=== PATIENT | female | born 1995 | race Caucasian/White ===

== ENCOUNTER 2017-04-22 15:22 | Emergency (ER) | payer OTHER ==
--- NOTE | 2017-04-22 16:54 | ED Physician Documentation ---
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 She has a scant amount of bleeding and she has only a scant amount of cramping as well. She does acknowledge breast tenderness and nausea. She has had a prior miscarriage and is nervous about this bleeding. She is also not wanting to have and endovaginal probe used today. Review of Systems Constitutional: denies: Fever, Chills, Fatigue Eyes: denies: Decreased vision Ears: denies: Ear pain Nose: denies: Congestion Throat: denies: Sore throat Respiratory: denies: Cough GI: reports: Nausea : reports: Frequency, Vaginal bleeding, Now EGA (6wks). denies: Dysuria Skin: denies: Rash Musculoskeletal: denies: Neck pain, Back pain, Extremity pain PD PAST MEDICAL HISTORY - Past Surgical History Past Surgical History: No - Present Medications Home Medications: Ambulatory Orders Medication Instructions Recorded Confirmed No Known Home Medications [No 04/22/17 04/22/17 Known Home Medications] - Allergies Allergies/Adverse Reactions: Allergies Allergy/AdvReac Type Severity Reaction Status Date / Time No Known Drug Allergies Allergy Verified 12/06/15 16:45 - Social History Does the pt smoke?: No Smoking Status: Never smoker - Immunizations Immunizations are current?: Yes PD ED PE NORMAL - Vitals Vital signs reviewed: Yes - General General: No acute distress, Well developed/nourished - HEENT HEENT: Atraumatic, PERRL - Neck Neck: Supple, no meningeal sign - Cardiac Cardiac: RRR, No murmur - Respiratory Respiratory: No respiratory distress, Clear bilaterally - Abdomen Abdomen: Soft, Non tender - Back Back: No CVA TTP, No spinal TTP - Derm Derm: Normal color, Warm and dry, No rash - Extremities Extremities: No deformity, No edema - Neuro Neuro: No motor deficit, No sensory deficit - Psych Psych: Normal mood, Normal affect Results - Vitals Vitals: Vital Signs - 24 hr 04/22/17 04/22/17 15:27 18:49 Temperature 36.4 C L 36.6 C Heart Rate 103 H 92 Respiratory 14 16 Rate Blood Pressure 146/86 H 138/80 H O2 Saturation 100 100 Oxygen O2 Source Room air - Labs Labs: Laboratory Tests 04/22/17 04/22/17 17:40 17:47 HCG, Quant 38.33 Urine Color YELLOW Urine Clarity CLEAR Urine pH 5.5 Ur Specific Kerrick >=1.030 H Urine Protein NEGATIVE Urine Glucose (UA) NEGATIVE Urine Ketones NEGATIVE Urine Occult Blood TRACE-INTA Urine Nitrite NEGATIVE Urine Bilirubin NEGATIVE Urine Urobilinogen 0.2 (NORMAL) Ur Leukocyte Esterase NEGATIVE Ur Microscopic Review NOT INDICATED Urine Culture Comments NOT INDICATED Procedures - Bedside sono Bedside sono by EMP: With the use of the bedside ultrasound the uterus is imaged transabdominally and there is a gestational sac with a gestational age of approximately 5 weeks 3 days I am not able to discern the fetus and the yolk sac. PD MEDICAL DECISION MAKING - ED course Complexity details: reviewed results, re-evaluated patient, considered differential, d/w patient, d/w family ED course: 21-year-old female with some spotting early in has a very low hCG but consistent with the findings on bedside ultrasound which shows a 5 week 3 day gestational sac. There is not definite confirmation of intrauterine as we are not able to distinguish fetus and yolk sac.I have discussed these findings with the patient and her required need to follow-up with her SEXUAL HEALTH PHYSICIAN doctor in 3 days time for repeat hCG. I have asked her to return to the emergency department should she have development of severe pain or syncope. Departure - Departure Disposition: 01 Home, Self Care Clinical Impression: Early stage of , Hemorrhage, , early Condition: Stable Instructions: ED Abdominal Pain Rule Out Ectopic, ED Miscarriage Poss Follow-Up: [place] DISLA [Primary Care Provider] - Comments: Follow up on Tuesday with your regular doctor for a repeat quantitative hCG Discharge Date/Time: 04/22/17 18:49
[2017-04-22 18:19] LABS: BILIRUBIN,URINE NEGATIVE (NEGATIVE); PH,URINE 5.5 PH (5.0-7.5)
[2017-04-22 18:25] LABS: UA CHARGE (STRIP ONLY) YES; UR CULTURE IF IND NOT INDICATED
[2017-04-22 18:50] VITALS: BP 138/80
== END 2017-04-22 18:49 | disposition home or self-care (01) ==
LOC: ED 15:22
DX: O20.9 Hemorrhage in early pregnancy, unspecified (principal); Z3A.01 Less than 8 weeks gestation of pregnancy
CPT/HCPCS: 81001; 81003; 84702; 87086; 99283

== ENCOUNTER 2017-04-25 09:28 | Emergency (ER) | payer OTHER ==
[2017-04-25 12:39] VITALS: BP 138/87
[2017-04-25] MEDS ORDERED: RHO(D) IMMUNE GLOBULIN 300 MCG SYRINGE IM ONE (12:54)
--- NOTE | 2017-04-25 13:37 | ED Physician Documentation ---
History of Present Illness - Stated complaint Stated Complaint: POSSIBLE MISCARRAIGE - Chief complaint Chief Complaint: Abd Pain - Additonal information Additional information: hx from pt approx 6 weeks EGA [place] pt but no appt yet seen Tuesday for spotting, quant 30, pt declined TV sono, bedside sono showed intrauterine gestational sac, advised to fup EDUARDO for 48-72 hr quant and recheck Sat she had heavy bleeding and cramping now pain is better but still bleeding about 1 pad per hr she come to ER to see if she has completed her miscarriage she is still adamant she does not want TV sono Review of Systems Constitutional: denies: Fever GI: denies: Abdominal Pain (better now) : reports: Vaginal bleeding, Now EGA PD PAST MEDICAL HISTORY - Past Surgical History Past Surgical History: No - Present Medications Home Medications: Ambulatory Orders Medication Instructions Recorded Confirmed No Known Home Medications [No 04/22/17 04/22/17 Known Home Medications] - Allergies Allergies/Adverse Reactions: Allergies Allergy/AdvReac Type Severity Reaction Status Date / Time No Known Drug Allergies Allergy Verified 12/06/15 16:45 - Social History Does the pt smoke?: No Smoking Status: Never smoker Does the pt drink ETOH?: No Does the pt have substance abuse?: No - Immunizations Immunizations are current?: Yes PD ED PE NORMAL - Vitals Vital signs reviewed: Yes - Cardiac Cardiac: RRR - Respiratory Respiratory: No respiratory distress, Clear bilaterally - Abdomen Abdomen: Soft, Non tender - 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), Other (mod dark blood, no tissue, os now closed) Results - Vitals Vitals: Vital Signs - 24 hr 04/25/17 04/25/17 09:36 12:38 Temperature 36.7 C Heart Rate 76 84 Respiratory 16 17 Rate Blood Pressure 134/82 H 138/87 H O2 Saturation 99 98 Oxygen O2 Source Room air - Labs Labs: Laboratory Tests 04/25/17 10:35 HCG, Quant 10.67 PD MEDICAL DECISION MAKING - ED course ED course: quant down to 10 and cervix closed pt declines TV sono feel ectopic very unlikely given that pain has subsided and quant has dropped significantly 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 I think an ectopic is unlikely since your symptoms are subsiding. A transvaginal ultrasound would normally be recommended in this situation but you are very clear that you do not want that test (and there is a good chance that it would be non diagnostic at 6 weeks gestation in any case) Please follow up with our STATE WILDLIFE OFFICER clinic Wed to for a recheck and to repeat the quantative HCG Return to the ER if you have any severe pain or feel faint or have increasing bleeding - these could be signs of an ectopic Also please get your blood pressure rechecked - it was high today Forms: Activity restrictions
== END 2017-04-25 13:50 | disposition home or self-care (01) ==
LOC: ED 09:28
DX: O03.4 Incomplete spontaneous abortion without complication (principal)
CPT/HCPCS: 36415; 84702; 86900; 86901; 96372; 99283

== ENCOUNTER 2018-06-21 23:01 | Emergency (ER) | payer OTHER ==
--- NOTE | 2018-06-21 23:29 | ED Physician Documentation ---
PD HPI LOWER EXT INJURY - Stated complaint Stated Complaint: L LEG INJURY - Chief complaint Chief Complaint: Trauma Ext - History obtained from History obtained from: Patient - History of Present Illness PD HPI LOW EXT INJURY LOCATION: Left, Knee, Ankle Type of injury: Fall Where injury occurred: Home Timing - onset: Today Timing - details: Abrupt onset, Still present Improved by: Rest, Immobilization Worsened by: Moving, Palpating Similar symptoms before: Has not had sx before Recently seen: Not recently seen - Additional information Additional information: Patient is a 23 year old female with no significant past medical history who is presenting to the emergency department for knee and ankle pain. patient states that she slipped on her steps and she twisted her ankle and hit her knee. patient denies any other injuries at this time. Review of Systems Ten Systems: 10 systems reviewed and negative Musculoskeletal: reports: Extremity pain, Joint pain, Extremity swelling, Joint swelling PD PAST MEDICAL HISTORY - Past Medical History Past Medical History: No - Past Surgical History Past Surgical History: No - Present Medications Home Medications: Ambulatory Orders Medication Instructions Recorded Confirmed No Known Home Medications 04/22/17 06/21/18 - Allergies Allergies/Adverse Reactions: Allergies Allergy/AdvReac Type Severity Reaction Status Date / Time oxycodone Allergy Dizziness Verified 06/21/18 23:16 - Social History Does the pt smoke?: No Smoking Status: Never smoker Does the pt drink ETOH?: No Does the pt have substance abuse?: No - Immunizations Immunizations are current?: Yes - POLST Patient has POLST: No PD ED PE NORMAL - Vitals Vital signs reviewed: Yes - General General: Alert and oriented X 3, No acute distress - HEENT HEENT: Atraumatic - Cardiac Cardiac: RRR - Respiratory Respiratory: No respiratory distress - Abdomen Abdomen: Non distended - Derm Derm: Normal color, Warm and dry - Neuro Neuro: Alert and oriented X 3 Eye Opening: Spontaneous Motor: Obeys Commands Verbal: Oriented GCS Score: 15 PD ED PE EXPANDED - Extremities Extremities: Left knee (mild tenderness to palpation, neurovascularly intacte), Left ankle (mild tenderness and swelling to lateral maleolus), Pedal Pulses Present, Motor intact, Sensory intact, Vascular intact, Tendon intact Results - Vitals Vitals: Vital Signs - 24 hr 06/21/18 23:04 Temperature 36.1 C L Heart Rate 82 Respiratory 16 Rate Blood Pressure 123/64 O2 Saturation 100 Oxygen O2 Source Room air - Rads (name of study) left knee Radiology: Final report received (no fracture or dislocation) left ankle Radiology: Final report received (no acute fracture or dislocation) PD MEDICAL DECISION MAKING - ED course Complexity details: reviewed old records, reviewed results, re-evaluated patient, considered differential, d/w patient ED course: Patient was seen and examined at bedside. When patient returned from imaging the results were reviewed. there was no acute fracture or dislocation. Patient was treated with ibuprofen for pain and placed in an purnima bandage. patient required no further work up and was stable for discharge with outpatient follow up. - Sepsis Event Vital Signs: Vital Signs - 24 hr 06/21/18 23:04 Temperature 36.1 C L Heart Rate 82 Respiratory 16 Rate Blood Pressure 123/64 O2 Saturation 100 Oxygen O2 Source Room air Departure - Departure Disposition: 01 Home, Self Care Clinical Impression: Ankle pain, left, Knee pain, left Condition: Good Instructions: ED Sprain Ankle W X Ray Follow-Up: Ezequiel Pereira MD [Primary Care Provider] - As Needed Comments: Your diagnostics today were within normal limits. there is no acute fracture or dislocation. You should ice your knee and ankle every 6 hrs and take motrin and tylenol as needed for pain. You should follow up with your doctor if your symptoms persist. You may return to the emergency department at any time for new, worsening or uncontrollable symptoms.
--- NOTE | 2018-06-21 23:57 | XRAY Report ---
Reason: GLF injury to knee ankle Procedure Date: 06/21/2018 Accession Number: [id number] / [id number] Procedure: XR - Knee 3 View LT CPT Code: FULL RESULT: EXAM: LEFT KNEE RADIOGRAPHY EXAM DATE: 06/21/2018 11:49 PM. CLINICAL HISTORY: Knee pain after injury. COMPARISON: None. TECHNIQUE: 3 views. FINDINGS: Bones: No fracture seen. Joints: No dislocation. Joint spaces appear intact. No joint effusion identified. Soft Tissues: Mild soft tissue swelling. IMPRESSION: 1. No acute osseous abnormality seen. RADIA
--- NOTE | 2018-06-22 00:01 | XRAY Report ---
Reason: GLF injury Procedure Date: 06/21/2018 Accession Number: [id number] / [id number] Procedure: XR - Ankle 3 View LT CPT Code: FULL RESULT: EXAM: LEFT ANKLE RADIOGRAPHY EXAM DATE: 06/21/2018 11:51 PM. CLINICAL HISTORY: Left ankle pain after injury. COMPARISON: None. TECHNIQUE: 3 views. FINDINGS: Bones: No fracture seen. Joints: No dislocation. Ankle mortise appears intact. No joint effusion identified. Soft Tissues: Mild soft tissue swelling. IMPRESSION: 1. No acute osseous abnormality seen. RADIA
[2018-06-22] MEDS ORDERED: IBUPROFEN 600 MG TABLET PO STA (00:12)
[2018-06-22 00:24] VITALS: BP 126/72
== END 2018-06-22 00:24 | disposition home or self-care (01) ==
LOC: ED 23:01
DX: M25.572 Pain in left ankle and joints of left foot (principal); M25.562 Pain in left knee; Z91.81 History of falling
CPT/HCPCS: 73562; 73610; 99283; A9270

== ENCOUNTER 2021-03-07 19:40 | Outpatient (CLI) | payer OTHER ==
[2021-03-07 20:53] LABS: BASOPHILS # (AUTO) 0.1 10^3/uL (0.0-0.1); BASOPHILS % (AUTO) 0.5 %; EOSINOPHILS # (AUTO) 0.2 10^3/uL (0.0-0.7); HGB - HEMOGLOBIN 15.1 g/dL (12.0-16.0); LYMPHOCYTES # (AUTO) 2.4 10^3/uL (1.5-3.5); LYMPHOCYTES % (AUTO) 20.5 %; MEAN CORPUSCULAR HEMOGLOBIN 29.4 pg (27.0-31.0); MEAN CORPUSCULAR HGB CONC 35.1 g/dL (32.0-36.0); MEAN CORPUSCULAR VOLUME 83.8 fL (81.0-99.0); MEAN PLATELET VOLUME 11.5 fL (7.9-10.8); MONOCYTES # (AUTO) 0.9 10^3/uL (0.0-1.0); MONOCYTES % (AUTO) 7.4 %; NEUTROPHILS # (AUTO) 8.1 10^3/uL (1.5-6.6); NEUTROPHILS % (AUTO) 69.3 %; PLT - PLATELET COUNT 276 10^3/uL (130-450); RED BLOOD COUNT 5.13 10^6/uL (4.20-5.40); RED CELL DISTRIBUTION WIDTH 12.8 % (12.0-15.0); WHITE BLOOD COUNT 11.7 x10^3/uL (4.8-10.8)
--- NOTE | 2021-03-07 21:30 | Ultrasound Report ---
PROCEDURE: OB First Trimester w/TV INDICATIONS: POSITIVE TEST OUTSIDE/PRIOR DATING DATA: Last menstrual period (LMP): 01/09/2021. LMP-based estimated date of delivery (JUNI): 10/16/2021. First dating scan (date and location): 03/07/2021. Estimated date of delivery (JUNI) from first dating scan: 10/28/2021. The below data below was generated using the 10/28/2021 JUNI of 03/07/2021 TECHNIQUE: Real-time scanning was performed of the fetus and maternal pelvic organs, with image documentation. Endovaginal scanning was also performed to better visualize the fetus and maternal ovaries. COMPARISON: None FINDINGS: Embryo: Single living intrauterine gestation identified. Healed sac and pole or identified. Yo lk sac is slightly irregular shape. [place]-rump length measures 0.64 cm corresponding to ultrasound es timated gestational age of 6 weeks 3 days. Small 0.6 x 0.4 x 0.4 cm subchorionic/periimplantational b leed. Measurement variability in dating: +/- 4 weeks by LMP, +/- 7 days by mean sac diameter (use before 6 weeks gestation if crown-rump length not able to be measured), +/- 5 days by crown-rump length (6-12 weeks gestation). Maternal organs: Ovaries are within normal limits. IMPRESSION: Single living intrauterine with ultrasound estimated gestational age of 6 weeks 3 days dai esponding to ultrasound JUNI of 10/28/2021. Reviewed by: Alejandrina Ferreira MD, PhD on 03/07/2021 9:29 PM PDT Approved by: Alejandrina Ferreira MD, PhD on 03/07/2021 9:29 PM PDT Station ID: [id number]
== END 2021-03-07 19:41 | disposition home or self-care (01) ==
LOC: DI 19:40
PROVIDERS: ATTEND Nurse Practitioner Obstetrics & Gynecology
DX: Z32.01 Encounter for pregnancy test, result positive (principal); Z87.59 Personal history of other complications of pregnancy, childbirth and the puerperium; Z36.89 Encounter for other specified antenatal screening
CPT/HCPCS: 36415; 85025; 86592; 86762; 86787; 86803; 86850; 86900; 86901; 87340; 87389

== ENCOUNTER 2021-04-16 08:00 | Outpatient (CLI) | payer OTHER ==
[2021-04-16 16:09] LABS: MUDS CUTOFF CONCENTRATIONS CUTOFF CONC BELOW:
[2021-04-16 16:21] LABS: BILIRUBIN,URINE NEGATIVE (NEGATIVE); GLUCOSE, URINE (UA) NEGATIVE (NEGATIVE); KETONES,URINE (UA) 40 mg/dL (NEGATIVE); LEUKOCYTE ESTERASE, URINE NEGATIVE (NEGATIVE); NITRITE,URINE NEGATIVE (NEGATIVE); OCCULT BLOOD,URINE SMALL (NEGATIVE); PROTEIN,URINE NEGATIVE (NEGATIVE); UROBILINOGEN,URINE 0.2 (NORMAL) E.U./dL (NORMAL)
[2021-04-16 16:22] LABS: CLARITY,URINE CLEAR (CLEAR)
[2021-04-16 16:30] LABS: PROTEIN/CREATININE RATIO,URINE 0.1 (<=0.2)
[2021-04-16 16:34] LABS: BACTERIA,URINE Few /HPF (None Seen); RBC,URINE 0-5 /HPF (0-5); SQUAMOUS EPITHELIAL CELL,UR FEW Squamous (<= Few); WBC,URINE 0-3 /HPF (0-5)
[2021-04-16 17:16] LABS: AMPHETAMINE SCREEN,URINE NEGATIVE (NEGATIVE); BARBITURATE SCREEN,UR NEGATIVE (NEGATIVE); BENZODIAZEPINES SCREEN, URINE NEGATIVE (NEGATIVE); COCAINE SCREEN URINE NEGATIVE (NEGATIVE); METHADONE SCREEN, URINE NEGATIVE (NEGATIVE); METHAMPHETAMINES SCREEN, URINE NEGATIVE (NEGATIVE); OPIATE SCREEN, URINE NEGATIVE (NEGATIVE); OXYCODONE SCREEN, URINE NEGATIVE (NEGATIVE); PROPOXYPHENE SCREEN, URINE NEGATIVE (NEGATIVE); THC CANNABINOID SCREEN, URINE NEGATIVE (NEGATIVE); TRICYCLIC ANTIDEPRESSANT,URINE NEGATIVE (NEGATIVE)
== END 2021-04-16 23:59 | disposition home or self-care (01) ==
LOC: LAB.WC 08:00
PROVIDERS: ATTEND Obstetrics & Gynecology
DX: O09.90 Supervision of high risk pregnancy, unspecified, unspecified trimester (principal); O16.9 Unspecified maternal hypertension, unspecified trimester
CPT/HCPCS: 80306; 81001; 82570; 84156; 87086

== ENCOUNTER 2021-04-16 13:14 | Outpatient (CLI) | payer OTHER ==
[2021-04-16 14:27] LABS: ALBUMIN 3.8 g/dL (3.2-5.5); ALBUMIN/GLOBULIN RATIO 1.3 (1.0-2.2); BILIRUBIN,TOTAL 0.5 mg/dL (0.2-1.0); CREATININE 0.6 mg/dL (0.4-1.0); POTASSIUM 3.3 mmol/L (3.5-5.0); TOTAL PROTEIN 6.7 g/dL (6.7-8.2)
[2021-04-16 20:06] LABS: ESTIMATED AVERAGE GLUCOSE 103 mg/dL (70-100); HEMOGLOBIN A1c% 5.2 % (4.27-6.07)
== END 2021-04-16 13:15 | disposition home or self-care (01) ==
LOC: LAB 13:14
PROVIDERS: ATTEND Obstetrics & Gynecology
DX: O16.9 Unspecified maternal hypertension, unspecified trimester (principal); O09.90 Supervision of high risk pregnancy, unspecified, unspecified trimester; O99.280 Endocrine, nutritional and metabolic diseases complicating pregnancy, unspecified trimester; R73.03 Prediabetes
CPT/HCPCS: 36415; 80053; 80306; 81001; 82570; 83036; 84156; 87086

== ENCOUNTER 2021-05-20 08:00 | Outpatient (CLI) | payer OTHER ==
[2021-05-21 14:06] LABS: AFP MOM 1.01; AGE RISK DOWN SYNDROME 1 IN 860; CIGARETTE SMOKER? NOT GIVEN; DONOR AGE: EGG RETRIEVAL NOT GIVEN; DONOR EGG NO; EDD DETERMINED BY ULTRASOUND; HCG MOM 1.03; HX OF NEURAL TUBE DEFECTS NO; INHIBIN A MOM 0.58; INSULIN DEPEND DIABETIC NO; MATERNAL WEIGHT 170 lbs; MSS DOWN SYNDROME RISK <1 IN 5000; MSS3 TRISOMY 18 RISK <1 IN 5000; NUMBER OF FETUSES 1; PREV PREGNANCY DOWN SYND NO; RISK FOR ONTD <1 IN 5000
== END 2021-05-20 23:59 | disposition home or self-care (01) ==
LOC: LAB.WCP 08:00
PROVIDERS: ATTEND Obstetrics & Gynecology
DX: O09.90 Supervision of high risk pregnancy, unspecified, unspecified trimester (principal)
CPT/HCPCS: 36415; 81511

== ENCOUNTER 2021-06-08 13:39 | Outpatient (CLI) | payer OTHER ==
--- NOTE | 2021-06-08 17:24 | Ultrasound Report ---
PROCEDURE: OB Detailed Eval INDICATIONS: SUPERVISION OF HIGH RISK OUTSIDE/PRIOR DATING DATA: Last menstrual period (LMP): 01/09/2021. LMP-based estimated date of delivery (JUNI): 10/16/2021. First dating scan (date and location): 03/07/2021. Estimated date of delivery (JUNI) from first dating scan: 10/28/2021. TECHNIQUE: Real-time scanning was performed of the fetus, with image documentation and biometric measurements. Endovaginal scanning: No COMPARISON: Prior OB ultrasound dated 02/08 FINDINGS: General: A single living intrauterine gestation is present. Presentation: Vertex Placenta: Placental position is anterior, without previa. Amniotic fluid index: 17.1 cm, normal for gestational age. heart rate: 140 beats per minute. Maternal cervical canal: 3.5 cm long; normal length is 2.5 cm or more. biometrics: Biparietal diameter: 20 weeks 2 days Head circumference: 20 weeks 1 day Abdominal circumference: 20 week 6 day Femur length: 20 weeks 1 day Estimated gestational age from initial scan: 19 weeks 5 days Composite gestational age from present scan: 20 weeks 1 day Estimated weight and percentile: 35 7 g; 86 percentile Measurement variability in biometric dating: +/- 10 days from 12-20 weeks gestation, +/- 2 weeks from 20-30 weeks gestation, +/- 3 weeks at 30 weeks gestation or later. Anatomic survey: Neuro: Ventricles are normal at less than 10 mm. Cisterna magna is normal at 3-11 mm. Cerebellum i s normal in size and morphology. Nuchal skin fold: Normal at less than 6 mm between 14 and 20 weeks gestational age. Face: Nose and lips, facial profile are normal. Spine: Suboptimally visualized. Heart: 4-chambered heart is present, and L4 fracture not well seen.. Diaphragm: Diaphragm is intact. Stomach: Left-sided stomach is present. Kidneys: Mild bilateral pelviectasis with the right renal pelvis measuring 7.2 mm and the left 6.4 mm . Normal is less than 5 mm in 2nd trimester, less than 7 mm in 3rd trimester. Cord: 3 vessel cord has orthotopic insertion. Bladder: Normal in size. Extremities: All 4 extremities are visualized. IMPRESSION: 1. Normal interval growth. 2. spine, and the cardiac catheter tracts are not well visualized and there is mild bilateral f etal renal pyelectasis. Follow-up is recommended. Reviewed by: ODALIS Judd on 06/08/2021 5:22 PM PDT Approved by: Steve Esteban MD on 06/08/2021 5:22 PM PDT Station ID: [id number]
== END 2021-06-08 13:40 | disposition home or self-care (01) ==
LOC: DI 13:39
PROVIDERS: ATTEND Obstetrics & Gynecology
DX: O09.92 Supervision of high risk pregnancy, unspecified, second trimester (principal); O35.8XX2 Maternal care for other (suspected) fetal abnormality and damage, fetus 2; Z3A.20 20 weeks gestation of pregnancy

== ENCOUNTER 2021-06-24 15:14 | Outpatient (CLI) | payer OTHER ==
--- NOTE | 2021-06-24 16:55 | Ultrasound Report ---
PROCEDURE: OB F/U or Repeat INDICATIONS: SUPERVISION HIGH RISK OUTSIDE/PRIOR DATING DATA: Last menstrual period (LMP): 01/09/2021. LMP-based estimated date of delivery (JUNI): 10/16/2021. First dating scan (date and location): 03/07/2021. Estimated date of delivery (JUNI) from first dating scan: 10/28/2021. TECHNIQUE: Real-time scanning was performed of the fetus, with image documentation and biometric measurements. Endovaginal scanning: No COMPARISON: None. FINDINGS: General: A single living intrauterine gestation is present. Presentation: Vertex Placenta: Placental position is anterior, without previa. Amniotic fluid index: 21.4 cm heart rate: 138 beats per minute. Maternal cervical canal: 5.1 cm long; normal length is 2.5 cm or more. Survey of anatomy includes normal face/lips/orbits, spine, four-chamber heart view, outflow tra cts, chest/diaphragm, stomach/abdomen, and urinary bladder/pelvis. Mild pelvocaliectasis persists walt aterally.. IMPRESSION: 1. Single living intrauterine gestation. 2. Persistent mild pelvocaliectasis. 3. Otherwise normal limited survey of anatomy as above. Reviewed by: Juan Ayala MD on 06/24/2021 4:54 PM PDT Approved by: Juan Ayala MD on 06/24/2021 4:54 PM PDT Station ID: [id number]
== END 2021-06-24 15:15 | disposition home or self-care (01) ==
LOC: DI 15:14
PROVIDERS: ATTEND Obstetrics & Gynecology
DX: O09.90 Supervision of high risk pregnancy, unspecified, unspecified trimester (principal)

== ENCOUNTER 2021-07-27 09:35 | Outpatient (CLI) | payer OTHER ==
[2021-07-27 12:44] LABS: HGB - HEMOGLOBIN 10.9 g/dL (12.0-16.0); MEAN CORPUSCULAR HEMOGLOBIN 28.1 pg (27.0-31.0); MEAN CORPUSCULAR HGB CONC 31.1 g/dL (32.0-36.0); MEAN CORPUSCULAR VOLUME 90.2 fL (81.0-99.0); MEAN PLATELET VOLUME 11.9 fL (7.9-10.8); RED BLOOD COUNT 3.88 10^6/uL (4.20-5.40); RED CELL DISTRIBUTION WIDTH 15.6 % (12.0-15.0); WHITE BLOOD COUNT 11.5 x10^3/uL (4.8-10.8)
== END 2021-07-27 23:59 | disposition home or self-care (01) ==
LOC: LAB.WCP 09:35
PROVIDERS: ATTEND Obstetrics & Gynecology
DX: O09.90 Supervision of high risk pregnancy, unspecified, unspecified trimester (principal); Z36.89 Encounter for other specified antenatal screening
CPT/HCPCS: 36415; 82950; 85027; 86850

== ENCOUNTER 2021-08-05 08:44 | Outpatient (CLI) | payer OTHER ==
[2021-08-05 09:16] LABS: GTT GLUCOSE,FASTING 86 mg/dL (70-100)
== END 2021-08-05 08:45 | disposition home or self-care (01) ==
LOC: LAB 08:44
PROVIDERS: ATTEND Obstetrics & Gynecology
DX: O99.810 Abnormal glucose complicating pregnancy (principal)
CPT/HCPCS: 36415; 82951; 82952

== ENCOUNTER 2021-09-08 12:40 | Outpatient (CLI) | payer OTHER ==
--- NOTE | 2021-09-08 13:34 | PROCEDURE REPORT ---
- HPI Diagnosis/Indication for NST: Pre- Hypertension - NST Procedure NST Procedure Start Date 09/08/21 Start Time 13:00 Stop Time 13:25 Patient States Movement Yes - Results and Plan Findings/Impression: Patient is a 26-year-old -0-2-0 at 32 weeks 6 days gestation here for scheduled NST. NST Performed 09/08/2021 NST Read 09/08/2021 FHT: 130 beats per baseline, moderate variability, accelerations present, no decelerations [place]: Quiescent Diagnosis Chronic hypertension 32 weeks gestation Reactive NST today. Continue with twice weekly NST.
[2021-09-08 14:15] VITALS: BP 101/57
== END 2021-09-08 13:45 | disposition home or self-care (01) ==
LOC: WFO 12:40 → FBP 12:43 → WFO 13:45
PROVIDERS: ATTEND Obstetrics & Gynecology
DX: O10.913 Unspecified pre-existing hypertension complicating pregnancy, third trimester (principal); O09.93 Supervision of high risk pregnancy, unspecified, third trimester; O36.8930 Maternal care for other specified fetal problems, third trimester, not applicable or unspecified; Z3A.32 32 weeks gestation of pregnancy
CPT/HCPCS: 59025

== ENCOUNTER 2021-09-08 13:53 | Outpatient (CLI) | payer OTHER ==
--- NOTE | 2021-09-08 17:28 | Ultrasound Report ---
PROCEDURE: OB F/U or Repeat INDICATIONS: HTN COMPLICATING CARE DURING OUTSIDE/PRIOR DATING DATA: Last menstrual period (LMP): 01/09/2021. LMP-based estimated date of delivery (JUNI): 10/16/2021. First dating scan (date and location): 03/07/2021. Estimated date of delivery (JUNI) from first dating scan: 10/28/2021. The below data below was generated using the ultrasound JUNI of 10/28/2021. TECHNIQUE: Real-time scanning was performed of the fetus, with image documentation and biometric measurements. Endovaginal scanning: No COMPARISON: Prior OB ultrasound dated June 24, 2021. FINDINGS: General: A single living intrauterine gestation is present. Presentation: Vertex Placenta: Placental position is anterior, without previa. Amniotic fluid index: 21.4 cm cm, normal for gestational age. heart rate: 138 beats per minute. Maternal cervical canal: 5.1 cm long; normal length is 2.5 cm or more. measurements: BPD: 33 weeks 6 days Head circumference: 34 weeks 1 day Abdominal circumference: 33 weeks 3 days Femur length: 30 weeks 3 days Estimated gestational age from initial scan: 22 weeks 0 days Estimated gestational age today: 33 weeks 0 days Estimated weight: 2026 g, 35th percentile. Other: Persistent right renal pyelectasis with a renal pelvis measuring 9.2 mm and there is progress harry left hydronephrosis with the left renal pelvis now measuring up to 18.6 mm. IMPRESSION: 1. Single living IUP redemonstrated and interval growth is normal. 2. Persistent right renal pelviectasis with the renal pelvis measuring 9.2 mm and there is moderate l eft hydronephrosis with the left renal pelvis measuring 18.6 mm which has progressed from prior exami nation. Consider tertiary care referral and continued follow-up is recommended. Charlotte Santos was given results at 1645 hours 09/08/2021. Reviewed by: ODALIS Judd on 09/08/2021 5:26 PM PST Approved by: Shayne Santos MD on 09/08/2021 5:26 PM PST Station ID: [id number]
== END 2021-09-08 13:54 | disposition home or self-care (01) ==
LOC: DI 13:53
PROVIDERS: ATTEND Obstetrics & Gynecology
DX: O09.93 Supervision of high risk pregnancy, unspecified, third trimester (principal); O36.8930 Maternal care for other specified fetal problems, third trimester, not applicable or unspecified; Z3A.33 33 weeks gestation of pregnancy

== ENCOUNTER 2021-09-11 13:50 | Outpatient (CLI) | payer OTHER ==
[2021-09-11 14:06] VITALS: BP 113/56
--- NOTE | 2021-09-11 17:23 | PROCEDURE REPORT ---
- HPI Current EDU 10/28/21 Gestation 33 Weeks and 2 Days 3 Para 0 Vital Signs Temperature 98.4 F 09/11/21 14:05 Heart Rate 98 09/11/21 14:05 Respiratory Rate 17 09/11/21 14:05 Blood Pressure 113/56 L 09/11/21 14:05 O2 Saturation 100 09/11/21 14:05 Temperature 98.4 F 09/11/21 14:06 Heart Rate 98 09/11/21 14:05 Respiratory Rate 17 09/11/21 14:05 Blood Pressure 113/56 L 09/11/21 14:05 O2 Saturation 100 09/11/21 14:05 - NST Procedure NST Procedure Start Date 09/11/21 Start Time 14:03 Stop Time 14:30 Vibroacoustic Stimulation Used No Patient States Movement Yes - Results and Plan Findings/Impression: Patient is a 26-year-old at 33 weeks 2 days gestation here for scheduled NST. NST Performed 09/11/2021 NST Read 09/11/2021 FHT: 135 beats per baseline, moderate variability, accelerations present, no decelerations. [place]: Quiescent Diagnosis 33 weeks gestation Chronic hypertension Reactive NST Continue with twice weekly NST.
== END 2021-09-11 14:40 | disposition home or self-care (01) ==
LOC: WFO 13:50 → FBP 13:51 → WFO 14:40
PROVIDERS: ATTEND Obstetrics & Gynecology
DX: O10.913 Unspecified pre-existing hypertension complicating pregnancy, third trimester (principal); Z3A.33 33 weeks gestation of pregnancy
CPT/HCPCS: 59025

== ENCOUNTER 2021-09-15 13:48 | Outpatient (CLI) | payer OTHER ==
--- NOTE | 2021-09-15 15:55 | Ultrasound Report ---
PROCEDURE: OB Limited INDICATIONS: HTN COMPLICATING CARE DURING OUTSIDE/PRIOR DATING DATA: Last menstrual period (LMP): 01/09/2021. LMP-based estimated date of delivery (JUNI): 10/16/2021. First dating scan (date): 03/07/2021. Estimated date of delivery (JUNI) from first dating scan: 10/28/2021. TECHNIQUE: Real-time scanning was performed of the fetus, with image documentation. COMPARISON: September 08, 2021 FINDINGS: A single living intrauterine gestation is present. Presentation: Cephalic Placenta: Placental position is anterior, without previa. Amniotic fluid index: 17.6 cm, appropriate for gestational age. Deepest pocket: 7.8 cm. heart rate: 147 beats per minutes. Maternal cervical canal: 4.5 cm long; normal length is 2.5 cm or more. Redemonstrated dilated bilateral renal pelvises. Right: 11.9 mm Left: 21.7 mm IMPRESSION: Single intrauterine gestation as detailed above. Reviewed by: Dallas Juarez MD on 09/15/2021 3:54 PM PST Approved by: Dallas Juarez MD on 09/15/2021 3:54 PM PST Station ID: [id number]
== END 2021-09-15 13:49 | disposition home or self-care (01) ==
LOC: DI 13:48
PROVIDERS: ATTEND Obstetrics & Gynecology
DX: O10.919 Unspecified pre-existing hypertension complicating pregnancy, unspecified trimester (principal); O09.90 Supervision of high risk pregnancy, unspecified, unspecified trimester; Z3A.00 Weeks of gestation of pregnancy not specified

== ENCOUNTER 2021-09-15 14:42 | Outpatient (CLI) | payer OTHER | END 2021-09-15 14:43 | disposition home or self-care (01) | LOC: WFO 14:42 | PROVIDERS: ATTEND Obstetrics & Gynecology | DX: Z53.9 Procedure and treatment not carried out, unspecified reason (principal) ==

== ENCOUNTER 2021-09-15 15:17 | Outpatient (CLI) | payer OTHER ==
[2021-09-15 17:06] VITALS: BP 107/53
--- NOTE | 2021-09-28 19:47 | PROCEDURE REPORT ---
- HPI Diagnosis/Indication for NST: Pre- Hypertension Current EDU 10/28/21 Gestation 33 Weeks and 6 Days 3 Para 0 Vital Signs Temperature 98.4 F 09/15/21 15:17 Heart Rate 87 09/15/21 15:17 Respiratory Rate 18 09/15/21 15:17 Blood Pressure 107/53 L 09/15/21 15:17 O2 Saturation 100 09/15/21 15:17 Temperature 98.4 F 09/15/21 15:17 Heart Rate 87 09/15/21 15:17 Respiratory Rate 18 09/15/21 15:17 Blood Pressure 107/53 L 09/15/21 15:17 O2 Saturation 100 09/15/21 15:17 - NST Procedure NST Procedure Start Date 09/15/21 Start Time 15:43 Stop Time 16:43 Vibroacoustic Stimulation Used Yes Patient States Movement Yes FHT: 135 beats per baseline, moderate variability, accelerations present, no decelerations. [place]: Quiescent - Results and Plan Plan: Patient is a 26-year-old at 33 weeks 6 days gestation here for scheduled NST for CHTN and renal pelviectasis. NST Performed 09/15/2021 NST Read 09/15/2021 FHT: 135 beats per baseline, moderate variability, accelerations present, no decelerations. [place]: Quiescent Diagnosis 33+6 weeks gestation Chronic hypertension renal pelviectasis Cat I tracing Continue with twice weekly NST.
== END 2021-09-15 16:53 | disposition home or self-care (01) ==
LOC: WFO 15:17 → FBP 15:19 → WFO 16:53
PROVIDERS: ATTEND Obstetrics & Gynecology
DX: O10.913 Unspecified pre-existing hypertension complicating pregnancy, third trimester (principal); O35.8XX0 Maternal care for other (suspected) fetal abnormality and damage, not applicable or unspecified; Z3A.33 33 weeks gestation of pregnancy
CPT/HCPCS: 59025

== ENCOUNTER 2021-09-18 13:45 | Outpatient (CLI) | payer OTHER ==
[2021-09-18 14:12] VITALS: BP 106/57
--- NOTE | 2021-09-18 19:48 | PROCEDURE REPORT ---
- HPI Diagnosis/Indication for NST: Pre- Hypertension Current EDU 10/28/21 Gestation 34 Weeks and 2 Days 1 Para 0 Vital Signs Temperature 98.2 F 09/18/21 14:04 Heart Rate 105 H 09/18/21 14:04 Respiratory Rate 18 09/18/21 14:04 Blood Pressure 106/57 L 09/18/21 14:04 Temperature 98.2 F 09/18/21 14:04 Heart Rate 105 H 09/18/21 14:04 Respiratory Rate 18 09/18/21 14:04 Blood Pressure 106/57 L 09/18/21 14:04 O2 Saturation - NST Procedure NST Procedure Start Date 09/18/21 Start Time 13:56 Stop Time 14:25 Vibroacoustic Stimulation Used No Patient States Movement Yes EFM 130 mod jason 15x15 accels no decels TOCO: quiet - Results and Plan Findings/Impression: Patient is a 26-year-old at 34 weeks 2 days gestation here for scheduled NST for CHTN and renal pelviectasis. NST Performed 09/18/2021 NST Read 09/18/2021 FHT: 130 beats per baseline, moderate variability, accelerations present, no decelerations. [place]: Quiescent Diagnosis 34 weeks gestation Chronic hypertension renal pelviectasis Cat I tracing Continue with twice weekly NST.
== END 2021-09-18 14:30 | disposition home or self-care (01) ==
LOC: WFO 13:45 → FBP 13:50 → WFO 14:30
PROVIDERS: ATTEND Obstetrics & Gynecology
DX: O10.913 Unspecified pre-existing hypertension complicating pregnancy, third trimester (principal); O36.8930 Maternal care for other specified fetal problems, third trimester, not applicable or unspecified; O09.93 Supervision of high risk pregnancy, unspecified, third trimester; Z3A.34 34 weeks gestation of pregnancy
CPT/HCPCS: 59025

== ENCOUNTER 2021-09-22 13:44 | Outpatient (CLI) | payer OTHER ==
--- NOTE | 2021-09-22 16:36 | Ultrasound Report ---
PROCEDURE: OB Limited INDICATIONS: HTN COMPLICATING CARE DURING OUTSIDE/PRIOR DATING DATA: Last menstrual period (LMP): 01/09/2021. LMP-based estimated date of delivery (JUNI): 10/16/2021. First dating scan (date and location): 03/07/2021. Estimated date of delivery (JUNI) from first dating scan: 10/28/2021. The below data below was generated using the ultrasound JUNI of 10/28/2021 TECHNIQUE: Real-time scanning was performed of the fetus, with image documentation. Endovaginal scanning: Not performed. COMPARISON: OB ultrasound 09/15/2021 FINDINGS: A single living intrauterine gestation is present. Presentation: Cephalic Placenta: Placental position is anterior, without previa. Amniotic fluid index: 24.1 cm, upper limits of normal for gestational age. Largest vertical pocket i s 8.5 cm heart rate: 152 beats per minutes. Maternal cervical canal: 4.4 cm long; normal length is 2.5 cm or more. The internal cervical os is c losed. Estimated gestational age from initial scan: 34 weeks 6 days. right renal pelvis measures 0.9 cm in left renal pelvis measures 1.7 cm in anteroposterior dime nsion, mildly decreased when compared to the ultrasound from 09/15/2021. IMPRESSION: 1.Single live intrauterine . 2.Amniotic fluid index is at the upper limits of normal, measuring 24.1 cm. 3.Bilateral renal pelviectasis is redemonstrated, which has mildly decreased when compared to t he prior exam. Reviewed by: Александр Rock MD on 09/22/2021 4:34 PM PST Approved by: Александр Rock MD on 09/22/2021 4:34 PM PST Station ID: [id number]
== END 2021-09-22 13:45 | disposition home or self-care (01) ==
LOC: DI 13:44
PROVIDERS: ATTEND Obstetrics & Gynecology
DX: O09.93 Supervision of high risk pregnancy, unspecified, third trimester (principal); O10.913 Unspecified pre-existing hypertension complicating pregnancy, third trimester; O35.8XX0 Maternal care for other (suspected) fetal abnormality and damage, not applicable or unspecified; Z3A.34 34 weeks gestation of pregnancy

== ENCOUNTER 2021-09-22 14:26 | Outpatient (CLI) | payer OTHER ==
--- NOTE | 2021-09-22 16:28 | PROCEDURE REPORT ---
- HPI Diagnosis/Indication for NST: Other (Chronic hypertension) Vital Signs Temperature 99.3 F 09/22/21 14:48 Heart Rate 86 09/22/21 14:48 Respiratory Rate 18 09/22/21 14:48 Blood Pressure 128/74 09/22/21 14:48 O2 Saturation 100 09/22/21 14:48 Temperature 99.3 F 09/22/21 14:48 Heart Rate 86 09/22/21 14:48 Respiratory Rate 18 09/22/21 14:48 Blood Pressure 128/74 09/22/21 14:48 O2 Saturation 100 09/22/21 14:48 - NST Procedure NST Procedure Start Time 13:56 Stop Time 14:25 - Results and Plan Findings/Impression: heart rate baseline-130- beats per minutes Moderate variability Accelerations 15x15 Decelerations none Contractions - irregular, resolved following PO hydration NST reactive and reassuring BPP 8/8 Cervical length on prelim report- 4 cm Urinalysis and wet prep were done secondary to contractions. UA was within normal limits. Wet prep with bacterial vaginosis. Flagyl Rx sent.
[2021-09-22 16:31] LABS: BILIRUBIN,URINE NEGATIVE (NEGATIVE); GLUCOSE, URINE (UA) NEGATIVE (NEGATIVE); KETONES,URINE (UA) NEGATIVE (NEGATIVE); LEUKOCYTE ESTERASE, URINE TRACE (NEGATIVE); NITRITE,URINE NEGATIVE (NEGATIVE); OCCULT BLOOD,URINE NEGATIVE (NEGATIVE); PROTEIN,URINE NEGATIVE (NEGATIVE); UROBILINOGEN,URINE 0.2 (NORMAL) E.U./dL (NORMAL)
[2021-09-22 16:49] LABS: BACTERIA,URINE None Seen /HPF (None Seen); CLARITY,URINE CLEAR (CLEAR); RBC,URINE None Seen /HPF (0-5); SQUAMOUS EPITHELIAL CELL,UR RARE Squamous (<= Few); WBC,URINE 0-3 /HPF (0-5)
[2021-09-22] MEDS ORDERED: metroNIDAZOLE 250 MG TABLET PO ONE (17:00)
[2021-09-23 08:19] VITALS: BP 115/58
== END 2021-09-22 17:35 | disposition home or self-care (01) ==
LOC: WFO 14:26 → FBP 14:26 → WFO 17:35
PROVIDERS: ATTEND Obstetrics & Gynecology
DX: O10.913 Unspecified pre-existing hypertension complicating pregnancy, third trimester (principal); O23.593 Infection of other part of genital tract in pregnancy, third trimester; N76.0 Acute vaginitis; O35.8XX0 Maternal care for other (suspected) fetal abnormality and damage, not applicable or unspecified; O09.93 Supervision of high risk pregnancy, unspecified, third trimester; Z3A.34 34 weeks gestation of pregnancy
CPT/HCPCS: 59025; 76815; 81001; 87086; 87210; 99214; A9270

== ENCOUNTER 2021-09-25 13:43 | Outpatient (CLI) | payer OTHER ==
[2021-09-25 13:56] VITALS: BP 108/58
--- NOTE | 2021-09-28 20:26 | PROCEDURE REPORT ---
- HPI Diagnosis/Indication for NST: Pre- Hypertension Current EDU 10/28/21 Gestation 35 Weeks and 2 Days 3 Para 0 Vital Signs Temperature 97.9 F 09/25/21 13:55 Heart Rate 105 H 09/25/21 13:55 Respiratory Rate 17 09/25/21 13:55 Blood Pressure 108/58 L 09/25/21 13:55 O2 Saturation 99 09/25/21 13:55 Temperature 97.9 F 09/25/21 13:56 Heart Rate 105 H 09/25/21 13:55 Respiratory Rate 17 09/25/21 13:55 Blood Pressure 108/58 L 09/25/21 13:55 O2 Saturation 99 09/25/21 13:55 - NST Procedure NST Procedure Start Date 09/25/21 Start Time 13:51 Stop Time 14:35 Vibroacoustic Stimulation Used No Patient States Movement Yes EFM 135 mod jason 15x15 accels no decels TOCO: Quiet - Results and Plan Plan: Patient is a 26-year-old at 35 weeks 2 days gestation here for scheduled NST for CHTN and renal pelviectasis. NST Performed 09/25/2021 NST Read 09/25/2021 Cat I tracing FHT: 135 beats per baseline, moderate variability, accelerations present, no decelerations. [place]: Quiescent Diagnosis 35 weeks gestation Chronic hypertension renal pelviectasis Continue with twice weekly NST.
== END 2021-09-25 14:55 | disposition home or self-care (01) ==
LOC: WFO 13:43 → FBP 13:45 → WFO 14:55
PROVIDERS: ATTEND Obstetrics & Gynecology
DX: O10.913 Unspecified pre-existing hypertension complicating pregnancy, third trimester (principal); Z3A.35 35 weeks gestation of pregnancy; O36.8930 Maternal care for other specified fetal problems, third trimester, not applicable or unspecified
CPT/HCPCS: 59025

== ENCOUNTER 2021-09-29 13:51 | Outpatient (CLI) | payer OTHER ==
--- NOTE | 2021-09-29 18:38 | Ultrasound Report ---
PROCEDURE: OB Limited INDICATIONS: HTN COMPLICATING CARE DURING OUTSIDE/PRIOR DATING DATA: Last menstrual period (LMP): 01/09/2021. LMP-based estimated date of delivery (JUNI): 10/16/2021. First dating scan (date and location): 03/07/2021. Estimated date of delivery (JUNI) from first dating scan: 10/28/2021. The below data below was generated using the ultrasound JUNI of 10/28/2021 TECHNIQUE: Real-time scanning was performed of the fetus, with image documentation. COMPARISON: 09/22/2021, 09/15/2021 FINDINGS: A single living intrauterine gestation is present. Presentation: Vertex Placenta: Placental position is anterior, without previa. Amniotic fluid index: 21.6 cm. Largest pocket 6.9 cm heart rate: 162 beats per minutes. Maternal cervical canal: 3.4 cm long; normal length is 2.5 cm or more. Estimated gestational age from initial scan: 35 weeks 6 days. The chest/diaphragm, stomach/abdomen, and urinary bladder/pelvis are normal. Bilateral renal pelviect asis is seen measuring 7.9 mm on the right and 17.9 mm on the left compared to 9.2 mm and 16.5 mm on the prior ultrasound. IMPRESSION: 1. Estimated gestational age from initial scan 35 weeks 6 days 2. Amniotic fluid measuring 21.6 cm. 3. Renal pelviectasis, similar to the prior study as above. Reviewed by: Anup Olivares on 09/29/2021 5:36 PM JILL Approved by: Anup Olivares on 09/29/2021 5:36 PM [facility] Station ID: [id number]
== END 2021-09-29 13:52 | disposition home or self-care (01) ==
LOC: DI 13:51
PROVIDERS: ATTEND Obstetrics & Gynecology
DX: O10.913 Unspecified pre-existing hypertension complicating pregnancy, third trimester (principal); O09.93 Supervision of high risk pregnancy, unspecified, third trimester; O34.83 Maternal care for other abnormalities of pelvic organs, third trimester; Z3A.35 35 weeks gestation of pregnancy

== ENCOUNTER 2021-09-29 14:20 | Outpatient (CLI) | payer OTHER ==
--- NOTE | 2021-09-29 15:28 | PROCEDURE REPORT ---
- HPI Diagnosis/Indication for NST: Pre- Hypertension - NST Procedure NST Procedure Start Time 13:51 Stop Time 14:35 - Results and Plan Findings/Impression: Patient is a at 35 weeks 6 days gestation here for scheduled NST. NST Performed 09/29/2021 NST Read 09/20/2021 FHT: 125 beats per minute baseline, moderate variability, accelerations pr esent, no decelerations. [place]: Quiescent Diagnosis 35 weeks gestation Chronic hypertension Continue with twice weekly NST. Reactive NST
[2021-09-29 15:49] VITALS: BP 106/68
== END 2021-09-29 15:54 | disposition home or self-care (01) ==
LOC: WFO 14:20 → FBP 14:24 → WFO 15:54
PROVIDERS: ATTEND Obstetrics & Gynecology
DX: O10.913 Unspecified pre-existing hypertension complicating pregnancy, third trimester (principal); Z3A.35 35 weeks gestation of pregnancy; O09.93 Supervision of high risk pregnancy, unspecified, third trimester; O34.83 Maternal care for other abnormalities of pelvic organs, third trimester
CPT/HCPCS: 59025

== ENCOUNTER 2021-09-30 08:00 | Outpatient (CLI) | payer OTHER | END 2021-09-30 23:59 | disposition home or self-care (01) | LOC: LAB.WC 08:00 | PROVIDERS: ATTEND Obstetrics & Gynecology | DX: Z36.85 Encounter for antenatal screening for Streptococcus B (principal) | CPT/HCPCS: 87797 ==

== ENCOUNTER 2021-10-02 13:43 | Outpatient (CLI) | payer OTHER ==
[2021-10-02 13:58] VITALS: BP 123/68
--- NOTE | 2021-10-02 17:32 | PROCEDURE REPORT ---
- HPI Diagnosis/Indication for NST: Pre- Hypertension Current EDU 10/28/21 Gestation 36 Weeks and 2 Days 3 Para 0 Vital Signs Temperature 98.1 F 10/02/21 13:48 Heart Rate 92 10/02/21 13:48 Respiratory Rate 18 10/02/21 13:48 Blood Pressure 123/68 10/02/21 13:48 Temperature 98.1 F 10/02/21 13:55 Heart Rate 92 10/02/21 13:55 Respiratory Rate 18 10/02/21 13:55 Blood Pressure 123/68 10/02/21 13:55 O2 Saturation 98 10/02/21 13:55 - NST Procedure NST Procedure Start Date 10/02/21 Start Time 13:52 Stop Time 14:16 Vibroacoustic Stimulation Used No Patient States Movement Yes EFM 135 mod jasno 15x15 accels no decels TOCO: 2 ctx in 20 min - Results and Plan Plan: Patient is a 26-year-old at 36 weeks 2 days gestation here for scheduled NST for CHTN and renal pelviectasis. NST Performed 10/02/2021 NST Read 10/02/2021 Cat I tracing FHT: 135 beats per baseline, moderate variability, accelerations present, no decelerations. [place]: 2 ctx in 20 min Diagnosis 36 weeks gestation Chronic hypertension renal pelviectasis Continue with twice weekly NST.
== END 2021-10-02 15:15 | disposition home or self-care (01) ==
LOC: WFO 13:43 → FBP 13:47 → WFO 15:15
PROVIDERS: ATTEND Obstetrics & Gynecology
DX: O10.913 Unspecified pre-existing hypertension complicating pregnancy, third trimester (principal); O35.8XX0 Maternal care for other (suspected) fetal abnormality and damage, not applicable or unspecified; Z3A.36 36 weeks gestation of pregnancy
CPT/HCPCS: 59025; 99213

== ENCOUNTER 2021-10-06 13:41 | Outpatient (CLI) | payer OTHER ==
--- NOTE | 2021-10-06 15:22 | Ultrasound Report ---
PROCEDURE: OB Limited INDICATIONS: HTN COMPLICATING CARE DURING OUTSIDE/PRIOR DATING DATA: Last menstrual period (LMP): January 09, 2022. LMP-based estimated date of delivery (JUNI): October 16, 2021. First dating scan (date): March 07, 2021. Estimated date of delivery (JUNI) from first dating scan: October 28, 2021. The below data below was generated using the ultrasound JUNI of October 28, 2021 TECHNIQUE: Real-time scanning was performed of the fetus, with image documentation. COMPARISON: September 29, 2021. FINDINGS: A single living intrauterine gestation is present. Presentation: Vertex Placenta: Placental position is anterior, without previa. Amniotic fluid index: 22.9 cm. Largest pocket: 9.4 cm heart rate: 143 beats per minutes. Maternal cervical canal: 3.4 cm long; normal length is 2.5 cm or more. Other: Redemonstrated bilateral renal pelvocaliectasis. IMPRESSION: 1. Single intrauterine gestation as detailed above. Reviewed by: Dallas Juarez MD on 10/06/2021 3:21 PM PST Approved by: Dallas Juarez MD on 10/06/2021 3:21 PM PST Station ID: [id number]
== END 2021-10-06 13:42 | disposition home or self-care (01) ==
LOC: DI 13:41
PROVIDERS: ATTEND Obstetrics & Gynecology
DX: O10.919 Unspecified pre-existing hypertension complicating pregnancy, unspecified trimester (principal); O09.90 Supervision of high risk pregnancy, unspecified, unspecified trimester; Z3A.00 Weeks of gestation of pregnancy not specified

== ENCOUNTER 2021-10-06 14:09 | Outpatient (CLI) | payer OTHER ==
[2021-10-06 14:39] VITALS: BP 97/57
--- NOTE | 2021-10-08 08:50 | PROCEDURE REPORT ---
- HPI Diagnosis/Indication for NST: Other (CHTN and renal pelviectasis) Current EDU 10/28/21 Gestation 36 Weeks and 6 Days 3 Para 0 Vital Signs Temperature 97.9 F 10/06/21 14:34 Heart Rate 92 10/06/21 14:34 Respiratory Rate 18 10/06/21 14:34 Blood Pressure 97/57 L 10/06/21 14:34 O2 Saturation 100 10/06/21 14:34 Temperature 97.9 F 10/06/21 15:15 Heart Rate 92 10/06/21 15:15 Respiratory Rate 18 10/06/21 15:15 Blood Pressure 97/57 L 10/06/21 15:15 O2 Saturation 100 10/06/21 14:34 - NST Procedure NST Procedure Start Date 10/06/21 Start Time 14:20 Stop Time 15:19 Vibroacoustic Stimulation Used No Patient States Movement Yes EFM 135 mod jason 15x15 accels no decels TOCO: irreg - Results and Plan Plan: Patient is a 26-year-old at 36 weeks 6 days gestation here for scheduled NST for CHTN and renal pelviectasis. NST Performed 10/06/2021 NST Read 10/06/2021 Cat I tracing FHT: 135 beats per baseline, moderate variability, accelerations present, no decelerations. [place]: irreg Diagnosis 36+6 weeks gestation Chronic hypertension renal pelviectasis Continue with twice weekly NST.
== END 2021-10-06 15:35 | disposition home or self-care (01) ==
LOC: WFO 14:09 → FBP 14:12 → WFO 15:35
PROVIDERS: ATTEND Obstetrics & Gynecology
DX: O16.3 Unspecified maternal hypertension, third trimester (principal); Z3A.36 36 weeks gestation of pregnancy; O35.8XX0 Maternal care for other (suspected) fetal abnormality and damage, not applicable or unspecified
CPT/HCPCS: 59025

== ENCOUNTER 2021-10-07 16:05 | Inpatient (IN) | payer OTHER ==
[2021-10-07 16:50] LABS: RUPTURE OF MEMBRANES PLUS POSITIVE (NEGATIVE)
[2021-10-07] MEDS ORDERED: LABETALOL 20 MG/4 ML SYRINGE IVP PRN ×3 (17:01)
[2021-10-07] MEDS ORDERED: OXYTOCIN 10 UNIT/ML VIAL IM PRN (17:01)
[2021-10-07] MEDS ORDERED: hydrALAZINE INJ 20 MG/ML VIAL IVP PRN (17:01)
[2021-10-07] MEDS ORDERED: CARBOPROST TROMETHAMINE 250 MCG/ML AMP IM PRN (17:01)
[2021-10-07] MEDS ORDERED: miSOPROStoL 200 MCG TABLET PR PRN (17:01)
[2021-10-07] MEDS ORDERED: LIDOCAINE-MPF 1% 30 ML VIAL ID PRN (17:01)
[2021-10-07] MEDS ORDERED: miSOPROStoL 200 MCG TABLET BC PRN (17:01)
[2021-10-07] MEDS ORDERED: SODIUM CHLORIDE FLUSH 0.9% 10 ML SYRINGE IVP PRN (17:01)
[2021-10-07] MEDS ORDERED: TRANEXAMIC ACID IN NACL 1,000 MG/100 ML BAG IV PRN (17:01)
[2021-10-07] MEDS ORDERED: METHYLERGONOVINE 0.2 MG/ML VIAL IM SCH (17:01)
[2021-10-07] MEDS ORDERED: NIFEdipine 10 MG CAPSULE PO PRN (17:01)
[2021-10-07] MEDS ORDERED: TERBUTALINE 1 MG/ML VIAL SUBQ PRN (17:01)
[2021-10-07] MEDS ORDERED: OXYTOCIN/SODIUM CHLORIDE 500 ML IV PRN (17:01)
[2021-10-07] MEDS ORDERED: ACETAMINOPHEN 500 MG TABLET PO PRN (17:08)
[2021-10-07] MEDS ORDERED: miSOPROStoL 100 MCG TABLET BC SCH (18:00)
[2021-10-07] MEDS ORDERED: OXYTOCIN/SODIUM CHLORIDE 500 ML IV SCH (18:00)
[2021-10-07] MEDS ORDERED: SODIUM CHLORIDE FLUSH 0.9% 10 ML SYRINGE IVP SCH (18:00)
[2021-10-07 18:16] LABS: BASOPHILS % (AUTO) 0.2 %; EOSINOPHILS # (AUTO) 0.1 10^3/uL (0.0-0.7); EOSINOPHILS % (AUTO) 0.7 %; HCT - HEMATOCRIT 35.3 % (37.0-47.0); HGB - HEMOGLOBIN 11.9 g/dL (12.0-16.0); LYMPHOCYTES # (AUTO) 1.3 10^3/uL (1.5-3.5); MEAN CORPUSCULAR HEMOGLOBIN 28.1 pg (27.0-31.0); MEAN CORPUSCULAR HGB CONC 33.7 g/dL (32.0-36.0); MEAN CORPUSCULAR VOLUME 83.3 fL (81.0-99.0); MEAN PLATELET VOLUME 11.8 fL (7.9-10.8); MONOCYTES # (AUTO) 0.8 10^3/uL (0.0-1.0); MONOCYTES % (AUTO) 7.2 %; NEUTROPHILS # (AUTO) 9.2 10^3/uL (1.5-6.6); NEUTROPHILS % (AUTO) 80.5 %; PLT - PLATELET COUNT 169 10^3/uL (130-450); RED BLOOD COUNT 4.24 10^6/uL (4.20-5.40); WHITE BLOOD COUNT 11.4 x10^3/uL (4.8-10.8)
[2021-10-07] MEDS: LACTATED RINGERS 1,000 ML IV SCH (18:30)
[2021-10-07 18:40] LABS: ALBUMIN 2.9 g/dL (3.2-5.5); ALBUMIN/GLOBULIN RATIO 0.9 (1.0-2.2); BILIRUBIN,TOTAL 0.4 mg/dL (0.2-1.0); CALCIUM 8.7 mg/dL (8.5-10.3); CREATININE 0.6 mg/dL (0.4-1.0); POTASSIUM 3.5 mmol/L (3.5-5.0); TOTAL PROTEIN 6.2 g/dL (6.7-8.2)
[2021-10-07] MEDS: LABETALOL 100 MG TABLET PO SCH (20:29)
[2021-10-07] MEDS ORDERED: diphenhydrAMINE 25 MG CAPSULE PO PRN (23:33)
[2021-10-07] MEDS ORDERED: ONDANSETRON 4 MG/2 ML VIAL IVP PRN (23:40)
[2021-10-07] MEDS: fentaNYL 100 MCG/2 ML VIAL IVP PRN (23:53)
--- NOTE | 2021-10-08 01:06 | HISTORY & PHYSICAL EXAMINATION ---
Admit History - Visit Reason Visit Reason: Membranes rupture - : 3 Parity: 0 Complications This : positive: Chronic HTN, Other ( renal pelviectasis) Smoking Status: Never smoker - Mother's Labs Mother's Blood Type: positive: A Mother's RH: positive: Negative GBS: positive: Group B Step Negative Rubella Status: positive: Immune - Other Maternal History Other Maternal History: ID: Patient is a 26 to at 37+0 wga who presents with ruptured membranes HPI: Patient reports initial gush of fluid at about 10:30 am today. Has continued to have slow passage of fluid throughout the day. Fluid has been clear. Feels confident this is not urine. Not feeling contractions seen on monitor. No VB. Endorses FM. 1) renal pelviectasis: ranging from 16.4 to 17.5 mm in recent weeks. Has seen [facility] who recommends us for after delivery. Reviewed case with Dr. Acosta and Terrell, both of whom are registration coordinator during anticipated labor and delivery process. TULIO has been high normal with no evidence of oligohydramnios. 2)CHTN: Well controlled on labetalol 100 mg po bid. Also on ASA. Normal PIH labs at baseline. 3) Rh negative: Will need Rhogam eval after delivery PN HX: LMP: 01/09/2021 JUNI by LMP:10/16/2021 Initial U/S:03/07/2021 @6w3d NOT c/w LMP with an JUNI of 10/28/2021 FINAL JUNI: 10/28/2021 PROBLEMS: CHTN: -Switched from nifedipine XL 30 mg po daily to labetalol 100 mg po bid Doing well on current dose with no change in regmen -Baseline CMP and P:C ordered; CBC completed with PNL -Confirmed to be taking ASA - EFW 68%ile on 09/24/21 R pelvic 10.2 left pelvis 17.4 TULIO 14.5 -IOL at 39 weeks RENAL PELVIECTASIS: Has seen MFM and [facility] Urology Current left pelvis 17.4 with normal TULIO Urology recommend IOL at 39 weeks OK to delivery at [facility] but will need renal us shortly after delivery Plan reviewed with Dr. Tejada A neg/Rubella imm RHOGAM : 08/05/2021 VZV: non-immune HIV neg/HepBsAg neg/HepC neg/RPR NR Genetic testing: opting for [facility] and AFP with carrier screening for CF -orders submitted for prior auth and [facility] denied -Quad wnl FAS:anterior, 3vc, 86%ile, mild bilateral renal pelviectasis at 7.2 and 6.4 cm See above for fu regarding renal pelviectasis Glucola 160 3hr wnl 86 161 158 115 Influenza: ALLERGY to eggs TDAP 08/17/2021 GBS negative HSV: denies Breast pump Rx 08/03 MOD: Anticipate pp contraception: pap:04/16/2021 WNL Past Medical History: Anxiety Disorder CHTN Prediabetes peripheral neuropathy Past Surgical History: [place] teeth (2017) lipoma eyelid cyst removal Family History: Asthma for Mother Hypertension for Mother Weight Disorder for Mother Diabetes for Father Hypertension for Father [place] male <55 for Maternal Grandfather Social History: Lives in [place] with 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 PE: VS: 112 112/74 98.4 GEN: NAD HEAD: NCAT EYES: No scleral icterus or conjunctival injection CV: RRR RESP: CTAB, normal effort ABD: S&NT/ND PSYCH: appropriate affect NEURO: alert and oriented, normal gait and coordination EXT: WWP Initial SVE at 16:44 FT/10/high/posterior per RN exam EFM 140 mod jason 15x15 accels no decels TOCO: Q3-4 min, mild. ROM+ positive Nitrazine: mildly positive A/P: 26 to at 37+0 weeks with complicated by renal pelviectasis and CHTN, now with ruptured membranes SROM: Unfavorable cervix without active labor. Presents more than 6 hours after initial rupture -Recommend commencing with pitocin augmentation. R/B/A reviewed. Consents signed -Cassandra too frequently for misoprostol -Remote from delivery and primip--> LIMIT SVE as high risk for chorioamnionis FWB: vertex, well grown, GBS neg, Cat I tracing, renal pelviectasis -CEFM -Pediatrics aware of patient and history. Cleared for delivery at this facility RH NEG: Needs Rhogam studis post delivery CHTN:Well controlled on labetalol 100 mg po bid -No PIH symptoms -Will obtain baseline CBC and CMP -Avoid methergine PAIN: Desires epidural -Reviewed nitrous oxide in early labor -Avoid heavy use of fentanyl, do not use with nitrous oxide. Max dose 200 mcg cumulative In patient care Meds/Allgy - Home Medications Home Medications: Ambulatory Orders Medication Instructions Recorded Confirmed Metoclopramide [Reglan] 5 mg PO Q6H PRN #60 tablet 03/12/21 09/15/21 Labetalol [Trandate] 100 mg PO BID 09/15/21 09/15/21 metroNIDAZOLE [Flagyl] 500 mg PO BID 7 Days #14 tablet 09/22/21 - Allergies Allergies/Adverse Reactions: Allergies Allergy/AdvReac Type Severity Reaction Status Date / Time barley Allergy Hives Verified 10/07/21 16:54 broccoli Allergy Hives Verified 10/07/21 16:53 egg Allergy Hives Verified 10/07/21 16:53 oxycodone Allergy Dizziness Verified 06/21/18 23:16 pineapple Allergy Hives Verified 10/07/21 16:48 strawberry Allergy Hives Verified 10/07/21 16:52 tomato Allergy Hives Verified 10/07/21 16:54 Physical - Abdominal Exam Vital Signs: Temp Pulse Resp BP Pulse Ox 98.4 F 100 18 132/68 H 10/07/21 18:03 10/07/21 18:03 10/07/21 18:03 10/07/21 18:03
--- NOTE | 2021-10-08 01:18 | PROVIDER PROGRESS NOTE ---
Subjective - Prog Note Date Prog Note Date: 10/07/21 Prog Note Time: 23:34 - Subjective Subjective: Pitocin currently at 5 mU/min. Patient is beginning to feel uncomfortable and anxiety is increasing. Feels too early for epidural. Open to nitrous oxide. Would also be willing to take benadryl to help with sleep. Having some light spotting and pain into her buttocks. Cat I tracing -Benadryl 25 mg po/iv for sleep -Set up nitrous oxide for pain mitigation -Cont with pitocin per protocol -BPs well controlled -Anticipate Objective - Vital Signs/Intake & Output Vital Signs: Vital Signs x48h Temp Pulse Resp BP 10/07/21 18:03 98.4 F 100 18 132/68 H Intake & Output: Intake & Output 10/05/21 10/06/21 10/07/21 10/08/21 23:59 23:59 23:59 23:59 Intake Total 600 Balance 600 - Lab Results Fish Bones: 10/07/21 17:40 10/07/21 18:16 Other Labs: Lab Results x24hrs 10/07/21 10/07/21 10/07/21 Range/Units 18:16 18:16 17:40 WBC 11.4 H (4.8-10.8) x10^3/uL RBC 4.24 (4.20-5.40) 10^6/uL Hgb 11.9 L (12.0-16.0) g/dL Hct 35.3 L (37.0-47.0) % MCV 83.3 (81.0-99.0) fL MCH 28.1 (27.0-31.0) pg MCHC 33.7 (32.0-36.0) g/dL RDW 14.0 (12.0-15.0) % Plt Count 169 (130-450) 10^3/uL MPV 11.8 H (7.9-10.8) fL Neut # (Auto) 9.2 H (1.5-6.6) 10^3/uL Lymph # (Auto) 1.3 L (1.5-3.5) 10^3/uL [place] # (Auto) 0.8 (0.0-1.0) 10^3/uL Eos # (Auto) 0.1 (0.0-0.7) 10^3/uL Baso # (Auto) 0.0 (0.0-0.1) 10^3/uL Absolute Nucleated RBC 0.00 x10^3/uL Nucleated RBC % 0.0 /100WBC Sodium 138 (135-145) mmol/L Potassium 3.5 (3.5-5.0) mmol/L Chloride 106 (101-111) mmol/L Carbon Dioxide 22 (21-32) mmol/L Anion Gap 10.0 (6-13) BUN 7 (6-20) mg/dL Creatinine 0.6 (0.4-1.0) mg/dL Estimated GFR (MDRD) 119 (>89) Glucose 98 (70-100) mg/dL Calcium 8.7 (8.5-10.3) mg/dL Total Bilirubin 0.4 (0.2-1.0) mg/dL AST 20 (10-42) IU/L ALT 18 (10-60) IU/L Alkaline Phosphatase 106 (42-121) IU/L Total Protein 6.2 L (6.7-8.2) g/dL Albumin 2.9 L (3.2-5.5) g/dL Globulin 3.3 (2.1-4.2) g/dL Albumin/Globulin Ratio 0.9 L (1.0-2.2) Membranes Rupture (NEGATIVE) Blood Type A NEGATIVE Antibody Screen NEGATIVE 10/07/21 Range/Units 16:30 WBC (4.8-10.8) x10^3/uL RBC (4.20-5.40) 10^6/uL Hgb (12.0-16.0) g/dL Hct (37.0-47.0) % MCV (81.0-99.0) fL MCH (27.0-31.0) pg MCHC (32.0-36.0) g/dL RDW (12.0-15.0) % Plt Count (130-450) 10^3/uL MPV (7.9-10.8) fL Neut # (Auto) (1.5-6.6) 10^3/uL Lymph # (Auto) (1.5-3.5) 10^3/uL [place] # (Auto) (0.0-1.0) 10^3/uL Eos # (Auto) (0.0-0.7) 10^3/uL Baso # (Auto) (0.0-0.1) 10^3/uL Absolute Nucleated RBC x10^3/uL Nucleated RBC % /100WBC Sodium (135-145) mmol/L Potassium (3.5-5.0) mmol/L Chloride (101-111) mmol/L Carbon Dioxide (21-32) mmol/L Anion Gap (6-13) BUN (6-20) mg/dL Creatinine (0.4-1.0) mg/dL Estimated GFR (MDRD) (>89) Glucose (70-100) mg/dL Calcium (8.5-10.3) mg/dL Total Bilirubin (0.2-1.0) mg/dL AST (10-42) IU/L ALT (10-60) IU/L Alkaline Phosphatase (42-121) IU/L Total Protein (6.7-8.2) g/dL Albumin (3.2-5.5) g/dL Globulin (2.1-4.2) g/dL Albumin/Globulin Ratio (1.0-2.2) Membranes Rupture POSITIVE A (NEGATIVE) Blood Type Antibody Screen
[2021-10-08] MEDS ORDERED: LACTATED RINGERS 700 ML IV ONE (01:34)
[2021-10-08] MEDS: fentaNYL 100 MCG/2 ML VIAL IVP PRN (02:15)
[2021-10-08] MEDS: LACTATED RINGERS 1,000 ML IV SCH ×3 (02:15→19:09)
--- NOTE | 2021-10-08 08:46 | PROVIDER PROGRESS NOTE ---
Subjective - Prog Note Date Prog Note Date: 10/08/21 Prog Note Time: 07:45 - Subjective Subjective: Pitocin currently at 9 mU/min. Patient using nitrous oxide for pain management Clear fluid. CTX palpate moderate per RN exam VS: 116/97 90 EFM 135 mod jason 15x15 accels no decels TOCO: Q3 min SROM/PROM: Cont with pitocin augmentation Minimizing cervical exams given prolonged rupture remote from delivery FWB: Peds aware of renal pelviectasis Cat I tracing CHTN: normal range on labetalol 100 mg po bid -Avoid methergine PPX: High risk PPH given prolonged induction Rh neg T&C for 2 units Anticipate Objective - Vital Signs/Intake & Output Intake & Output: Intake & Output 10/05/21 10/06/21 10/07/21 10/08/21 23:59 23:59 23:59 23:59 Intake Total 600 1275 Balance 600 1275 - Lab Results Fish Bones: 10/07/21 17:40 10/07/21 18:16 Other Labs: Lab Results x24hrs 10/07/21 10/07/21 10/07/21 Range/Units 18:16 18:16 17:40 WBC 11.4 H (4.8-10.8) x10^3/uL RBC 4.24 (4.20-5.40) 10^6/uL Hgb 11.9 L (12.0-16.0) g/dL Hct 35.3 L (37.0-47.0) % MCV 83.3 (81.0-99.0) fL MCH 28.1 (27.0-31.0) pg MCHC 33.7 (32.0-36.0) g/dL RDW 14.0 (12.0-15.0) % Plt Count 169 (130-450) 10^3/uL MPV 11.8 H (7.9-10.8) fL Neut # (Auto) 9.2 H (1.5-6.6) 10^3/uL Lymph # (Auto) 1.3 L (1.5-3.5) 10^3/uL [place] # (Auto) 0.8 (0.0-1.0) 10^3/uL Eos # (Auto) 0.1 (0.0-0.7) 10^3/uL Baso # (Auto) 0.0 (0.0-0.1) 10^3/uL Absolute Nucleated RBC 0.00 x10^3/uL Nucleated RBC % 0.0 /100WBC Sodium 138 (135-145) mmol/L Potassium 3.5 (3.5-5.0) mmol/L Chloride 106 (101-111) mmol/L Carbon Dioxide 22 (21-32) mmol/L Anion Gap 10.0 (6-13) BUN 7 (6-20) mg/dL Creatinine 0.6 (0.4-1.0) mg/dL Estimated GFR (MDRD) 119 (>89) Glucose 98 (70-100) mg/dL Calcium 8.7 (8.5-10.3) mg/dL Total Bilirubin 0.4 (0.2-1.0) mg/dL AST 20 (10-42) IU/L ALT 18 (10-60) IU/L Alkaline Phosphatase 106 (42-121) IU/L Total Protein 6.2 L (6.7-8.2) g/dL Albumin 2.9 L (3.2-5.5) g/dL Globulin 3.3 (2.1-4.2) g/dL Albumin/Globulin Ratio 0.9 L (1.0-2.2) Membranes Rupture (NEGATIVE) Blood Type A NEGATIVE Antibody Screen NEGATIVE 10/07/21 Range/Units 16:30 WBC (4.8-10.8) x10^3/uL RBC (4.20-5.40) 10^6/uL Hgb (12.0-16.0) g/dL Hct (37.0-47.0) % MCV (81.0-99.0) fL MCH (27.0-31.0) pg MCHC (32.0-36.0) g/dL RDW (12.0-15.0) % Plt Count (130-450) 10^3/uL MPV (7.9-10.8) fL Neut # (Auto) (1.5-6.6) 10^3/uL Lymph # (Auto) (1.5-3.5) 10^3/uL [place] # (Auto) (0.0-1.0) 10^3/uL Eos # (Auto) (0.0-0.7) 10^3/uL Baso # (Auto) (0.0-0.1) 10^3/uL Absolute Nucleated RBC x10^3/uL Nucleated RBC % /100WBC Sodium (135-145) mmol/L Potassium (3.5-5.0) mmol/L Chloride (101-111) mmol/L Carbon Dioxide (21-32) mmol/L Anion Gap (6-13) BUN (6-20) mg/dL Creatinine (0.4-1.0) mg/dL Estimated GFR (MDRD) (>89) Glucose (70-100) mg/dL Calcium (8.5-10.3) mg/dL Total Bilirubin (0.2-1.0) mg/dL AST (10-42) IU/L ALT (10-60) IU/L Alkaline Phosphatase (42-121) IU/L Total Protein (6.7-8.2) g/dL Albumin (3.2-5.5) g/dL Globulin (2.1-4.2) g/dL Albumin/Globulin Ratio (1.0-2.2) Membranes Rupture POSITIVE A (NEGATIVE) Blood Type Antibody Screen
[2021-10-08] MEDS: LABETALOL 100 MG TABLET PO SCH (09:02)
[2021-10-08] MEDS ORDERED: fentaNYL 100 MCG/2 ML VIAL ONE ×2 (09:29→22:45)
[2021-10-08] MEDS ORDERED: ROPIVACAINE 0.2% 200 MG/100 ML BAG EP ONE (09:29)
[2021-10-08] MEDS ORDERED: NALOXONE 0.4 MG/ML VIAL IVP PRN (10:03)
[2021-10-08] MEDS ORDERED: diphenhydrAMINE INJ 50 MG/ML VIAL IVP PRN (10:03)
[2021-10-08] MEDS ORDERED: ROPIVACAINE 0.2% 200 MG/100 ML BAG EP PRN ×2 (10:03→13:57)
[2021-10-08] MEDS ORDERED: ePHEDrine 50 MG/ML VIAL IVP PRN (10:03)
[2021-10-08] MEDS ORDERED: NALBUPHINE 10 MG/ML AMP IVP PRN (10:03)
[2021-10-08] MEDS ORDERED: ONDANSETRON 4 MG/2 ML VIAL IVP PRN (10:03)
[2021-10-08] MEDS ORDERED: METOCLOPRAMIDE 10 MG/2 ML VIAL IVP PRN (10:03)
--- NOTE | 2021-10-08 10:03 | ANESTHESIA ---
Pre-Anesthesia VS, & Labs - Diagnosis active labor - Procedure Labor epidural Vital Signs: Temp Pulse Resp BP Pulse Ox 36.9 C 100 18 132/68 H 10/07/21 18:03 10/07/21 18:03 10/07/21 18:03 10/07/21 18:03 Height: 5 ft 3 in Weight (kg): 91.626 kg Body Mass Index: 35.7 BMI Classification: Obese - NPO >8 hours - Is Patient ?: Yes - Lab Results Current Lab Results: Laboratory Tests 10/07/21 18:16: Blood Type A NEGATIVE, Antibody Screen NEGATIVE, Crossmatch IS Only See Detail 10/07/21 18:16: Sodium 138, Potassium 3.5, Chloride 106, Carbon Dioxide 22, Anion Gap 10.0, BUN 7, Creatinine 0.6, Estimated GFR (MDRD) 119, Glucose 98, Calcium 8.7, Total Bilirubin 0.4, AST 20, ALT 18, Alkaline Phosphatase 106, Total Protein 6.2 L, Albumin 2.9 L, Globulin 3.3, Albumin/Globulin Ratio 0.9 L 10/07/21 17:40: WBC 11.4 H, RBC 4.24, Hgb 11.9 L, Hct 35.3 L, MCV 83.3, MCH 28.1, MCHC 33.7, RDW 14.0, Plt Count 169, MPV 11.8 H, Neut # (Auto) 9.2 H, Lymph # (Auto) 1.3 L, [place] # (Auto) 0.8, Eos # (Auto) 0.1, Baso # (Auto) 0.0, Absolute Nucleated RBC 0.00, Nucleated RBC % 0.0 Lab results reviewed: Yes Fish Bones: 10/07/21 17:40 10/07/21 18:16 Home Medications and Allergies Active Medications Acetaminophen (Acetaminophen 500 Mg Tablet) 1,000 mg PO Q8HR PRN PRN Reason: Mild Pain Or Fever>38c(100.4f) Carboprost Tromethamine (Carboprost Tromethamine 250 Mcg/Ml Amp) 250 mcg IM ONCE PRN PRN Reason: Hemorrhage Stop: 10/08/21 17:00 Diphenhydramine HCl (Diphenhydramine 25 Mg Capsule) 25 mg PO QPM PRN PRN Reason: Insomnia Last Admin: 10/07/21 23:53 Dose: 25 mg Documented by: Fentanyl (Fentanyl 100 Mcg/2 Ml Vial) 50 mcg IVP Q1H PRN PRN Reason: Severe Pain (score 7-10) Last Admin: 10/08/21 02:15 Dose: 50 mcg Documented by: Hydralazine HCl (Hydralazine Inj 20 Mg/Ml Vial) 5 - 20 mg IVP Q20M PRN; Protocol PRN Reason: SBP> or= 160 OR DBP> or= 110 Oxytocin/Sodium Chloride (Pitocin/Sodium Chloride) 500 mls @ 999 mls/hr IV PRN PRN; Protocol PRN Reason: POST- HEMORR PREVENTION Tranexamic Acid (Tranexamic 1,000 Mg/100ml-Nacl) 1,000 mg in 100 mls @ 600 mls/hr IV Q30M PRN PRN Reason: EBL >1200mL and within 3hr Lactated Ringer's (Lr) 1,000 mls @ 100 mls/hr IV .Q10H ROLANDO Last Admin: 10/08/21 09:35 Dose: 100 mls/hr Documented by: Oxytocin/Sodium Chloride (Pitocin/Sodium Chloride) 500 mls @ 1 mls/hr IV TITR ROLANDO; Protocol Last Admin: 10/07/21 18:30 Dose: 1 milliunit/min, 1 mls/hr Documented by: Labetalol HCl (Labetalol 20 Mg/4 Ml Syringe) 20 mg IVP .ONCE PRN; Protocol PRN Reason: SBP> or= 160 OR DBP> or= 110 Labetalol HCl (Labetalol 20 Mg/4 Ml Syringe) 20 mg IVP .ONCE PRN; Protocol PRN Reason: Step 9 of nifedipine protocol Stop: 10/12/21 17:04 Labetalol HCl (Labetalol 20 Mg/4 Ml Syringe) 40 mg IVP .ONCE PRN; Protocol PRN Reason: Step 9 of hydrALAZine protocol Stop: 10/12/21 17:04 Labetalol HCl (Labetalol 100 Mg Tablet) 100 mg PO BID ROLANDO Last Admin: 10/08/21 09:02 Dose: 100 mg Documented by: Lidocaine HCl (Lidocaine-Mpf 1% 30 Ml Vial) 30 ml ID ONCE PRN PRN Reason: PERINEAL REPAIR Stop: 10/08/21 17:01 Methylergonovine Maleate (Methylergonovine 0.2 Mg/Ml Vial) 0.2 mg IM ONCE ROLANDO Stop: 10/08/21 17:00 Misoprostol (Misoprostol 200 Mcg Tablet) 600 mcg BC ONCE PRN PRN Reason: Hemorrhage Stop: 10/08/21 17:00 Misoprostol (Misoprostol 200 Mcg Tablet) 800 mcg [place] ONCE PRN PRN Reason: Hemorrhage Stop: 10/08/21 17:00 Misoprostol (Misoprostol 100 Mcg Tablet) 25 mcg BC Q4H ROLANDO Stop: 10/08/21 14:01 Nifedipine (Nifedipine 10 Mg Capsule) 10 - 20 mg PO Q20M PRN; Protocol PRN Reason: SBP> or= 160 OR DBP> or= 110 Ondansetron HCl (Ondansetron 4 Mg/2 Ml Vial) 4 mg IVP Q4HR PRN PRN Reason: Nausea / Vomiting Last Admin: 10/07/21 23:56 Dose: 4 mg Documented by: Oxytocin (Oxytocin 10 Unit/Ml Vial) 10 unit IM ONCE PRN PRN Reason: Step One if no IV access. Stop: 10/08/21 17:00 Sodium Chloride (Sodium Chloride Flush 0.9% 10 Ml Syringe) 10 ml IVP PRN PRN PRN Reason: NEEDED PER PROVIDER ORDERS Sodium Chloride (Sodium Chloride Flush 0.9% 10 Ml Syringe) 10 ml IVP Q8H ROLANDO Terbutaline Sulfate (Terbutaline 1 Mg/Ml Vial) 0.25 mg SUBQ .ONCE PRN PRN Reason: Tachystole Labetalol [Trandate] 100 mg PO BID 09/15/21 Allergies/Adverse Reactions: Allergies Allergy/AdvReac Type Severity Reaction Status Date / Time barley Allergy Hives Verified 10/07/21 16:54 broccoli Allergy Hives Verified 10/07/21 16:53 egg Allergy Hives Verified 10/07/21 16:53 oxycodone Allergy Dizziness Verified 06/21/18 23:16 pineapple Allergy Hives Verified 10/07/21 16:48 strawberry Allergy Hives Verified 10/07/21 16:52 tomato Allergy Hives Verified 10/07/21 16:54 Anes History & Medical History - Anesthetic History Anesthesia Complications: reports: No previous complications Family history of Anesthesia Complications: Denies Family history of Malignant Hyperthermia: Denies - Medical History Cardiovascular: reports: None Pulmonary: reports: None Gastrointestinal: reports: None Neuro: reports: Other (has right leg nerve pain, swelling at times. Lateral and posterior lower leg pain.) Smoking Status: Never smoker - Obstetrical History : 3 Parity: 0 Complications: reports: Chronic HTN, Other ( renal pelviectasis) Exam General: Alert, Oriented x3, Cooperative, No acute distress Dental: WNL Plan Anesthesia Type: Epidural Consent for Procedure(s) Verified and Reviewed: Yes Code Status: Attempt Resuscitation ASA classification: 2-Mild systemic disease Is this case an emergency?: No
--- NOTE | 2021-10-08 13:59 | CONSULTATION NOTE ---
Consultation Report: I was called to OB as patient experiencing hypotension with FHR decels after intermittent boluses of epidural. I changed the epidural pump to continuous mode with PCEA per order change. Patient stable with stable FHR when I saw her, T6 epidural level.
--- NOTE | 2021-10-08 14:54 | PROVIDER PROGRESS NOTE ---
Labor Progress Note - Uterine Monitoring Uterine Monitoring Mode: positive: IUPC Contraction Frequency (min/apart): 2-3 Contraction Intensity: positive: Mild to moderate Uterine Resting Tone: positive: Soft - Monitoring Monitor Mode: positive: External ultrasound Heart Rate Baseline: 130 Heart Rate Variability: positive: Moderate (6-25 bmp) Accelerations: positive: Present, 15x15 Decelerations: positive: Early Strip Review: positive: Category I - Vaginal Exam Dilation (in cm): 3 Effacement (%): 70 Station: -2 - Labor Progress Note Labor Progress Note/Additional Text: IUPC placed. Will increase oxytocin as tolerable. Did get an epidural bolus, but decreased blood pressure subsequently. Now prolonged rupture but no fever or tachycardia.
--- NOTE | 2021-10-08 20:52 | PROVIDER PROGRESS NOTE ---
Labor Progress Note - Uterine Monitoring Uterine Monitoring Mode: positive: External toco Contraction Frequency (min/apart): 2-3 Contraction Intensity: positive: Mild to moderate - Monitoring Monitor Mode: positive: External ultrasound Heart Rate Baseline: 130 Heart Rate Variability: positive: Moderate (6-25 bmp) Accelerations: positive: Present, 15x15 Decelerations: positive: None Strip Review: positive: Category I - Vaginal Exam Dilation (in cm): 10 Effacement (%): 100 - Labor Progress Note Labor Progress Note/Additional Text: Patient pushed for approximately 2 hours, but needed a break due to exhaustion. Fetus still at 0 to +1 station, would attempt vacuum with slightly more descent. Discussed the patient that we can give her a break for some time as we allow her to regain energy. Remains afebrile. No signs of distress or chorioamnionitis. After a brief break, we will resume pushing in anticipation of vaginal delivery with or without vacuum assistance.
[2021-10-08] MEDS ORDERED: CARBOPROST TROMETHAMINE 250 MCG/ML AMP IM ONE (22:15)
[2021-10-08] MEDS ORDERED: METHYLERGONOVINE 0.2 MG/ML VIAL ONE (22:15)
[2021-10-08] MEDS ORDERED: ceFAZolin 2 GM in SODIUM CHLORIDE 0.9% 100ML 100 ML IV ONE (22:32)
[2021-10-08] MEDS ORDERED: AZITHROMYCIN INJ 500 MG in SODIUM CHLORIDE 0.9% 250 ML IV SCH (22:35)
[2021-10-08] MEDS ORDERED: LIDOCAINE MPF 2%-EPI 1:200000 20 ML VIAL ONE (22:45)
[2021-10-08] MEDS ORDERED: MORPHINE PF 5 MG/10 ML VIAL ONE (22:45)
[2021-10-08] MEDS ORDERED: ONDANSETRON 4 MG/2 ML VIAL ONE (22:45)
[2021-10-08] MEDS ORDERED: ceFAZolin 1 GM VIAL ONE (22:52)
[2021-10-08] MEDS ORDERED: LACTATED RINGERS 1,000 ML ONE (23:15)
[2021-10-08] MEDS ORDERED: OXYTOCIN 10 UNIT/ML VIAL ONE (23:40)
[2021-10-08] MEDS ORDERED: ePHEDrine 50 MG/ML VIAL IVP ONE (23:43)
[2021-10-09] MEDS ORDERED: ONDANSETRON 4 MG/2 ML VIAL IVP PRN ×2 (00:01→02:05)
[2021-10-09] MEDS ORDERED: diphenhydrAMINE INJ 50 MG/ML VIAL IVP PRN (00:01)
[2021-10-09] MEDS ORDERED: ePHEDrine 50 MG/ML VIAL IVP PRN ×2 (00:01→02:05)
[2021-10-09] MEDS ORDERED: NALBUPHINE 10 MG/ML AMP IVP PRN (00:01)
[2021-10-09] MEDS ORDERED: NALOXONE 0.4 MG/ML VIAL IVP PRN ×2 (00:01→02:05)
[2021-10-09] MEDS ORDERED: METOCLOPRAMIDE 10 MG/2 ML VIAL IVP PRN ×2 (00:01→02:05)
[2021-10-09] MEDS ORDERED: oxyCODONE 5 MG TABLET PO PRN (01:34)
[2021-10-09] MEDS ORDERED: SODIUM CHLORIDE FLUSH 0.9% 10 ML SYRINGE IVP PRN (01:34)
[2021-10-09] MEDS ORDERED: ONDANSETRON ODT 4 MG TABLET TL PRN (01:34)
--- NOTE | 2021-10-09 01:36 | OPERATIVE REPORT ---
Operative Report - General Admit Date: 10/07/21 Planned Procedure: Section Pre-Op Diagnosis: Failure to descend. Procedure Performed: section with repair of cystotomy. Post Op Diagnosis: section and repair of cystotomy - Procedure Note Primary Surgeon: Eddie Fraser MD Secondary Surgeon: Juan Alberto Morel MD Anesthesia Provider: Mg Lucas CRNA Anesthesia Technique: Epidural Pathology: None IV Fluids (mL): 1,600 Estimated Blood Loss (mL): 1,000 Urine Output (mL): 55 Findings: Normal appearing uterus, tubes, and ovaries. - Other Other Information/Narrative: Preoperative diagnosis: 37 weeks gestation Term labor/SROM Chronic hypertension Prolonged rupture of membranes Prolonged second stage Failed attempted vacuum-assisted vaginal delivery Failure of descent Postoperative diagnosis Same Delivered Status post primary low transverse section Status post repair of cystotomy Patient presented at 37 weeks 0 days gestation who leaking fluid. She was dilated only to a fingertip and started on oxytocin. She had primarily a category 1 tracing throughout her labor with an occasional late deceleration, usually related to hypotension after an epidural bolus. She had prolonged rupture of membranes, and second day of labor, and IUPC was placed to allow further titration of oxytocin. After making slow progress to active labor, she made good progress in the active stage to complete. She initially pushed well, but had slowing of descent, she had a prolonged second stage and once she reached +2 station a vacuum-assisted vaginal delivery was attempted. She was placed in the dorsolithotomy position with good control of her pain. Her bladder was drained. The patient was counseled on the risk of vacuum delivery. We discussed a trial of vacuum delivery with no significant descent we would proceed with section. We discussed that we would give up if no descent occurred after 2 tractions, if delivery did not occur after 4 tractions or if the vacuum detached more than twice. We discussed the risk of cephalhematoma, hemorrhage, nerve injuries, bruises, elevated bilirubin, as well as maternal issues of soft tissue injuries. We discussed that traction alone cannot deliver the baby, we can only assist maternal pushing efforts. The flexion point was identified 3 cm anterior of the posterior fontanelle. The vacuum was placed between contractions. Upon maternal contraction and pushing the vacuum was inflated to the green zone of the Kiwi hard suction device. Gentle traction was used in the plane of descent, and with the first pushing made mild descent. Between contractions, the suction was released. On her second contraction, there again was descent, however a pop-off was noted. On her third contraction she again had descent, but a pop-off was noted in the head ascended. The fetus did have decelerations with contractions during vacuum assistance. Due to the minimal effort, we discussed abandoning the procedure for a section. section was recommended. Risks, benefits and alternatives were discussed including but not limited to infection, bleeding that may require blood products or hysterectomy for life saving measures, injury to surrounding organs including but not limited to bowel, bladder, ureters, tubes and ovaries and/or the baby. Should injury occur it could require longer/additional surgery to repair. The patient stated understanding and desired to proceed. All questions were answered posed by patient. Prior to being taken to the OR, to grams of cefazolin IV and 500 mg of azithromycin were administered. The patient was taken to the operating room where regional anesthesia was found to be adequate. She was then prepared and draped in the usual sterile fashion in the dorsal supine position with a leftward tilt displacing the uterus. Cabrales was draining to gravity. SCDs were on bilateral lower extremities. A pfannenstiel skin incision was then made with the scalpel and carried through to the underlying layer of fascia. The fascia was incised in the midline and the incision extended laterally with the Mathew scissors. The superior aspect of the facial incision was then grasped with the Naga clamps, elevated and the underlying rectus muscles dissected off sharply. Attention was then turned to th e inferior aspect of this incision which in a similar fashion was grasped, elevated with the Naga clamps and the rectus muscle dissected off sharply. The rectus muscles were in the midline. The peritoneum identified, grasped with the pick-ups and entered sharply with the Metzenbaum scissors. The peritoneal incision was then extended superiorly and inferiorly with good visualization of the bladder. The bladder blade was inserted. The lower uterine segment was identified and incised in a transverse fashion with the scalpel. The uterine incision was then extended bluntly laterally. Minimal fluid was noted. The bladder blade was removed. The fetus was in a cephalic presentation very low in the pelvis. I attempted to reach the bottom of the head but was unable to, so I asked her nurse to don a sterile glove and place a hand in the vagina to elevate the head. I was subsequently able to get my hand under the head and elevated out of the pelvis. During the process of the difficult extraction, we made bilateral incisions to extend the rectus muscles as well as the skin incision. Bandage scissors were used to extend the uterine incision laterally to maternal left. The infants head delivered atraumatically. The anterior shoulders were delivered followed by the posterior shoulders then the remainder of the body. The cord was clamped and cut after approximately 20 seconds and was handed off to the radiation officer to be evaluated at the [facility]. Cord blood gases were obtained. The placenta was removed with gentle traction. 30 units of oxytocin were added to IVF and allowed to run freely. The uterus was exteriorized and cleared of all clots and debris. The uterine incision was inspected and found to be extended to the right lower segment. Using sequential ring forceps the lower uterine segment was tracked around then closed with a running suture of 0 Vicryl. At that time the Cabrales balloon was noted to be in the abdomen and was traced backed to the bladder. A small approximately 1.5 cm defect was noted in the dome of the bladder, likely from the trauma of elevating the head from the pelvis. This was closed in a running fashion with a 3-0 Vicr yl followed by 2-0 Vicryl in the muscularis. This was noted to be hemostatic. Attention was then returned to the uterus where a second imbricating layer was performed using 2-0 Vicryl. 3 additional [id number] stitches were used to achieve hemostasis. Examination of the tubes and ovaries at this time appeared normal. Upon inspection, the repaired hysterotomy was found to be hemostatic. The uterus was firm and returned to the abdomen. The gutters were cleared of all clots and debris. The peritoneum was closed with a running stitch of 2-0 Vicryl. The muscles were reapproximated with 2-0 Vicryl. The fascia was reapproximated with 0 Vicryl in a running fashion. The subcutaneous tissue was closed with 2-0 Vicryl. The skin was closed in a subcuticular fashion with 3-0 Vicryl. The patient tolerated the procedure well. Sponge, lap and needle counts were correct times three. The patient was taken to the recovery room in stable condition. We discussed the procedure with the patient explaining the difficult extraction of the fetus which is examined and noted to have some bruising on the back and head. It had some caput, likely from a combination of prolonged second stage and attempted vacuum delivery. It was otherwise doing well and was being held by the patient and nursing. Advised that the Cabrales catheter will remain in place for 5 days. I appreciate the assistance of Dr. Morel during this procedure, and her assistance in retraction, visualization, dissection, and overall assistance during the case were instrumental to the patient's wellbeing.
--- NOTE | 2021-10-09 01:38 | ANESTHESIA POST OP EVALUATION ---
Anesthesia Post Eval - Post Anesthesia Eval Vitals: Last Vital Signs Temp 36.9 C 10/07/21 18:03 Pulse 100 10/07/21 18:03 Resp 18 10/07/21 18:03 BP 132/68 H 10/07/21 18:03 Pulse Ox CV Function Including HR & BP: Stable Pain Control: Satisfactory Nausea & Vomiting: Negative Mental Status: Baseline Respiratory Status: Airway Patent Hydration Status: Satisfactory Anesthesia Complications: None
[2021-10-09 02:05] LABS: HCT - HEMATOCRIT 28.9 % (37.0-47.0); HGB - HEMOGLOBIN 9.4 g/dL (12.0-16.0)
[2021-10-09] MEDS ORDERED: ATROPINE ABBOJECT 1 MG/10 ML SYRINGE IVP PRN (02:05)
[2021-10-09] MEDS ORDERED: KETOROLAC 15 MG/ML VIAL IVP ONE (02:05)
[2021-10-09] MEDS: KETOROLAC 30 MG/ML VIAL IVP SCH ×4 (02:10→20:21)
[2021-10-09] MEDS ORDERED: LACTATED RINGERS 1,000 ML IV SCH (03:00)
[2021-10-09] MEDS: ACETAMINOPHEN 500 MG TABLET PO SCH ×3 (03:34→20:21)
[2021-10-09] MEDS: LACTATED RINGERS 1,000 ML IV SCH ×2 (04:15→08:27)
[2021-10-09] MEDS: cephALEXin 250 MG CAPSULE PO SCH ×3 (06:05→21:54)
[2021-10-09 07:47] LABS: BASOPHILS # (AUTO) 0.1 10^3/uL (0.0-0.1); BASOPHILS % (AUTO) 0.4 %; EOSINOPHILS # (AUTO) 0.2 10^3/uL (0.0-0.7); EOSINOPHILS % (AUTO) 0.9 %; HCT - HEMATOCRIT 22.3 % (37.0-47.0); HGB - HEMOGLOBIN 7.6 g/dL (12.0-16.0); LYMPHOCYTES # (AUTO) 1.1 10^3/uL (1.5-3.5); LYMPHOCYTES % (AUTO) 4.8 %; MEAN CORPUSCULAR HEMOGLOBIN 28.8 pg (27.0-31.0); MEAN CORPUSCULAR HGB CONC 34.1 g/dL (32.0-36.0); MEAN CORPUSCULAR VOLUME 84.5 fL (81.0-99.0); MEAN PLATELET VOLUME 11.5 fL (7.9-10.8); MONOCYTES # (AUTO) 1.2 10^3/uL (0.0-1.0); MONOCYTES % (AUTO) 5.3 %; NEUTROPHILS # (AUTO) 20.4 10^3/uL (1.5-6.6); NEUTROPHILS % (AUTO) 88.2 %; PLT - PLATELET COUNT 144 10^3/uL (130-450); RED BLOOD COUNT 2.64 10^6/uL (4.20-5.40); RED CELL DISTRIBUTION WIDTH 14.1 % (12.0-15.0); WHITE BLOOD COUNT 23.1 x10^3/uL (4.8-10.8)
[2021-10-09 09:02] LABS: ALBUMIN 1.9 g/dL (3.2-5.5); ALBUMIN/GLOBULIN RATIO 0.8 (1.0-2.2); BILIRUBIN,TOTAL 0.6 mg/dL (0.2-1.0); CREATININE 0.7 mg/dL (0.4-1.0); POTASSIUM 3.6 mmol/L (3.5-5.0); TOTAL PROTEIN 4.4 g/dL (6.7-8.2)
--- NOTE | 2021-10-09 09:46 | PROVIDER PROGRESS NOTE ---
Subjective - Prog Note Date Prog Note Date: 10/09/21 Prog Note Time: 09:45 - Subjective Pt reports feeling: Improved Subjective: Subjective Patient reports she is doing much better than yesterday Lochia appropriate. Denies heavy bleeding. Has not ambulated yet. Pelvic and abdominal pain well-controlled. Tolerating oral intake. Diet: Regular. Catheter remains in place. Passing flatus. Denies BM. Patient is bonding with baby in room Breast feeding going well. Denies feeling lightheaded, dizzy or excessively fatigued. Objective General: Alert, oriented, no apparent distress. Cardiovascular: Regular rate. Regular rhythm. Lungs: No increased work of breathing. Clear to auscultation bilaterally Abdomen: Uterus firm. Below umbilicus. No guarding or rebound. Bowel sounds normal and active in all 4 quadrants. Back: No CVA tenderness Incision: Bandage in place. Assessment and Plan 1. Status post primary low transverse section -Routine care -Anticipate discharge in 2 days 2. Acute blood loss anemia -Has had 1 L bolus plus maintenance fluids. -Mild tachycardia and intermittent mild hypotension. -Hemoglobin from 11.9-7.6 postoperatively. No dizziness, but has not ambulated. Will reassess as she gets out of bed today. 3. Cystotomy -Patient had cystotomy repaired at time of surgery and made little urine overnight. This morning, bladder scan showed approximately 500 mL of urine but catheter is not draining. it did not drain with flushing, so the catheter was removed and replaced and drained 630 mL. We will continue to monitor urine output at this time. -Plan for likely cystogram prior to discharge. 4. Rh negative -Rhophylac ordered 5. Chronic hypertension -Blood pressure stable, although low. Most recently 103/41. Will hold labetalol at this time. Objective - Vital Signs/Intake & Output Vital Signs: Vital Signs x48h Temp Pulse Pulse Resp BP BP BP 10/09/21 08:00 98.8 F 116 H 20 103/41 L 10/09/21 05:35 97.9 F 106 H 16 121/66 10/09/21 04:18 97.9 F 122 H 18 107/57 L 10/09/21 03:30 117 H 16 110/61 10/09/21 03:15 113 H 16 105/67 10/09/21 03:00 122 H 105/64 10/09/21 02:49 98.6 F 126 H 12 107/65 10/09/21 02:25 98.8 F 124 H 17 123/82 H 10/09/21 02:20 98.8 F 116 H 17 116/71 10/09/21 02:15 98.8 F 121 H 17 123/82 H 10/09/21 02:10 98.8 F 128 H 17 118/78 10/09/21 02:05 98.8 F 133 H 17 117/76 10/09/21 01:55 98.8 F 142 H 17 115/75 10/09/21 01:50 98.8 F 142 H 18 107/72 10/09/21 01:45 98.8 F 130 H 18 97/69 Pulse Ox 10/09/21 08:00 96 10/09/21 05:35 96 10/09/21 04:18 98 10/09/21 03:30 97 10/09/21 03:15 100 10/09/21 03:00 100 10/09/21 02:49 100 10/09/21 02:25 99 10/09/21 02:20 99 10/09/21 02:15 99 10/09/21 02:10 99 10/09/21 02:05 99 10/09/21 01:55 99 10/09/21 01:50 99 10/09/21 01:45 100 Intake & Output: Intake & Output 10/06/21 10/07/21 10/08/21 10/09/21 23:59 23:59 23:59 23:59 Intake Total 600 2965.000 880 Output Total 450 1284 Balance 600 2515.000 -404 - Lab Results Fish Bones: 10/09/21 07:40 10/09/21 08:40 Other Labs: Lab Results x24hrs 10/09/21 10/09/21 10/09/21 Range/Units 08:40 08:40 07:40 WBC (4.8-10.8) x10^3/uL RBC (4.20-5.40) 10^6/uL Hgb (12.0-16.0) g/dL Hct (37.0-47.0) % MCV (81.0-99.0) fL MCH (27.0-31.0) pg MCHC (32.0-36.0) g/dL RDW (12.0-15.0) % Plt Count (130-450) 10^3/uL MPV (7.9-10.8) fL Neut # (Auto) (1.5-6.6) 10^3/uL Lymph # (Auto) (1.5-3.5) 10^3/uL [place] # (Auto) (0.0-1.0) 10^3/uL Eos # (Auto) (0.0-0.7) 10^3/uL Baso # (Auto) (0.0-0.1) 10^3/uL Absolute Nucleated RBC x10^3/uL Nucleated RBC % /100WBC Sodium 134 L (135-145) mmol/L Potassium 3.6 (3.5-5.0) mmol/L Chloride 104 (101-111) mmol/L Carbon Dioxide 23 (21-32) mmol/L Anion Gap 7.0 (6-13) BUN 9 (6-20) mg/dL Creatinine 0.7 (0.4-1.0) mg/dL Estimated GFR (MDRD) 100 (>89) Glucose 119 H (70-100) mg/dL Lactic Acid 1.5 (0.5-2.2) mmol/L Calcium 8.0 L (8.5-10.3) mg/dL Total Bilirubin 0.6 (0.2-1.0) mg/dL AST 25 (10-42) IU/L ALT 15 (10-60) IU/L Alkaline Phosphatase 66 (42-121) IU/L Total Protein 4.4 L (6.7-8.2) g/dL Albumin 1.9 L (3.2-5.5) g/dL Globulin 2.5 (2.1-4.2) g/dL Albumin/Globulin Ratio 0.8 L (1.0-2.2) Blood Type A NEGATIVE Weak D (Du) WEAK-D NEGATIVE Maternal Bleed NEGATIVE (NEGATIVE) 10/09/21 10/09/21 Range/Units 07:40 01:21 WBC 23.1 H (4.8-10.8) x10^3/uL RBC 2.64 L (4.20-5.40) 10^6/uL Hgb 7.6 L 9.4 L (12.0-16.0) g/dL Hct 22.3 L 28.9 L (37.0-47.0) % MCV 84.5 (81.0-99.0) fL MCH 28.8 (27.0-31.0) pg MCHC 34.1 (32.0-36.0) g/dL RDW 14.1 (12.0-15.0) % Plt Count 144 (130-450) 10^3/uL MPV 11.5 H (7.9-10.8) fL Neut # (Auto) 20.4 H (1.5-6.6) 10^3/uL Lymph # (Auto) 1.1 L (1.5-3.5) 10^3/uL [place] # (Auto) 1.2 H (0.0-1.0) 10^3/uL Eos # (Auto) 0.2 (0.0-0.7) 10^3/uL Baso # (Auto) 0.1 (0.0-0.1) 10^3/uL Absolute Nucleated RBC 0.00 x10^3/uL Nucleated RBC % 0.0 /100WBC Sodium (135-145) mmol/L Potassium (3.5-5.0) mmol/L Chloride (101-111) mmol/L Carbon Dioxide (21-32) mmol/L Anion Gap (6-13) BUN (6-20) mg/dL Creatinine (0.4-1.0) mg/dL Estimated GFR (MDRD) (>89) Glucose (70-100) mg/dL Lactic Acid (0.5-2.2) mmol/L Calcium (8.5-10.3) mg/dL Total Bilirubin (0.2-1.0) mg/dL AST (10-42) IU/L ALT (10-60) IU/L Alkaline Phosphatase (42-121) IU/L Total Protein (6.7-8.2) g/dL Albumin (3.2-5.5) g/dL Globulin (2.1-4.2) g/dL Albumin/Globulin Ratio (1.0-2.2) Blood Type Weak D (Du) Maternal Bleed (NEGATIVE)
[2021-10-09] MEDS: metroNIDAZOLE 250 MG TABLET PO SCH ×3 (09:50→21:55)
[2021-10-09] MEDS: DOCUSATE SODIUM 100 MG CAPSULE PO SCH ×2 (09:51→20:21)
[2021-10-09] MEDS ORDERED: RHO(D) IMMUNE GLOBULIN 300 MCG SYRINGE IVP ONE (10:15)
[2021-10-09] MEDS: SODIUM CHLORIDE FLUSH 0.9% 10 ML SYRINGE IVP SCH (20:21)
[2021-10-09] MEDS: SIMETHICONE CHEW 80 MG TABLET PO PRN (20:22)
[2021-10-10] MEDS: SIMETHICONE CHEW 80 MG TABLET PO PRN ×3 (01:57→21:55)
[2021-10-10] MEDS: ACETAMINOPHEN 500 MG TABLET PO SCH ×3 (01:57→21:55)
[2021-10-10] MEDS ORDERED: IBUPROFEN 600 MG TABLET PO SCH (02:00)
[2021-10-10 07:13] LABS: BASOPHILS # (AUTO) 0.1 10^3/uL (0.0-0.1); BASOPHILS % (AUTO) 0.4 %; EOSINOPHILS # (AUTO) 0.1 10^3/uL (0.0-0.7); EOSINOPHILS % (AUTO) 0.5 %; LYMPHOCYTES # (AUTO) 1.5 10^3/uL (1.5-3.5); LYMPHOCYTES % (AUTO) 8.9 %; MEAN CORPUSCULAR HGB CONC 33.9 g/dL (32.0-36.0); MEAN CORPUSCULAR VOLUME 85.7 fL (81.0-99.0); MEAN PLATELET VOLUME 11.7 fL (7.9-10.8); MONOCYTES # (AUTO) 0.9 10^3/uL (0.0-1.0); MONOCYTES % (AUTO) 5.2 %; NEUTROPHILS # (AUTO) 13.8 10^3/uL (1.5-6.6); NEUTROPHILS % (AUTO) 84.2 %; PLT - PLATELET COUNT 137 10^3/uL (130-450); RED BLOOD COUNT 2.17 10^6/uL (4.20-5.40); RED CELL DISTRIBUTION WIDTH 14.4 % (12.0-15.0); WHITE BLOOD COUNT 16.4 x10^3/uL (4.8-10.8)
[2021-10-10 07:15] LABS: HCT - HEMATOCRIT 18.6 % (37.0-47.0); HGB - HEMOGLOBIN 6.3 g/dL (12.0-16.0)
[2021-10-10] MEDS: metroNIDAZOLE 250 MG TABLET PO SCH ×3 (08:00→22:01)
[2021-10-10] MEDS: cephALEXin 250 MG CAPSULE PO SCH ×3 (08:00→21:56)
[2021-10-10] MEDS: DOCUSATE SODIUM 100 MG CAPSULE PO SCH ×2 (08:00→21:55)
[2021-10-10] MEDS: IBUPROFEN 600 MG TABLET PO SCH ×3 (09:02→21:55)
--- NOTE | 2021-10-10 09:26 | PROVIDER PROGRESS NOTE ---
Subjective - Prog Note Date Prog Note Date: 10/10/21 Prog Note Time: 09:26 - Subjective Pt reports feeling: Improved Subjective: Subjective Patient reports she is doing well. Lochia appropriate. Denies heavy bleeding. Ambulating. Pelvic and abdominal pain well-controlled. Tolerating oral intake. Diet: Regular. Voiding without difficulty. Passing flatus. Denies BM. Patient is bonding with baby in room Breast feeding going well. Lightheadedness yesterday when getting out of bed. Feeling better in general, however. Objective General: Alert, oriented, no apparent distress. Cardiovascular: Regular rate. Regular rhythm. Lungs: No increased work of breathing. Abdomen: Uterus firm. Below umbilicus. No guarding or rebound. Incision: Clean, dry, and intact. Assessment and Plan 1. Status post primary low transverse section -Postop day 2 -Routine care -Anticipate discharge tomorrow 2. Acute blood loss anemia --HGB down to 6.3. This is likely at equilibrium as it is a little over 24 hours postop. . -Mild, intermittent tachycardia. -Dizziness when getting out of bed yesterday, limited ability to ambulate. No ambulation overnight. -Will transfuse one unit PRBC today and recheck H/H four hours after completion -Iron dextran ordered. 3. Cystotomy -Urine output remains good. Clear urine. -Plan for cystogram tomorrow. 4. Rh negative -Rhophylac given 10/09/21 5. Chronic hypertension -Blood pressure stable. Continue to minimally hold labetalol at this time. Objective - Vital Signs/Intake & Output Vital Signs: Vital Signs x48h Temp Pulse Resp BP Pulse Ox 10/10/21 07:30 98.1 F 108 H 20 116/61 99 10/10/21 06:35 208.4 F H 99 18 117/58 L 10/10/21 02:00 209.1 F H 18 L 18 Intake & Output: Intake & Output 10/07/21 10/08/21 10/09/21 10/10/21 23:59 23:59 23:59 23:59 Intake Total 600 2965.000 2380 1100 Output Total 450 3474 2425 Balance 600 2515.000 -1094 -1325 - Lab Results Fish Bones: 10/10/21 06:45 10/09/21 08:40 Other Labs: Lab Results x24hrs 10/10/21 Range/Units 06:45 WBC 16.4 H (4.8-10.8) x10^3/uL RBC 2.17 L (4.20-5.40) 10^6/uL Hgb 6.3 L* (12.0-16.0) g/dL Hct 18.6 L* (37.0-47.0) % MCV 85.7 (81.0-99.0) fL MCH 29.0 (27.0-31.0) pg MCHC 33.9 (32.0-36.0) g/dL RDW 14.4 (12.0-15.0) % Plt Count 137 (130-450) 10^3/uL MPV 11.7 H (7.9-10.8) fL Neut # (Auto) 13.8 H (1.5-6.6) 10^3/uL Lymph # (Auto) 1.5 (1.5-3.5) 10^3/uL [place] # (Auto) 0.9 (0.0-1.0) 10^3/uL Eos # (Auto) 0.1 (0.0-0.7) 10^3/uL Baso # (Auto) 0.1 (0.0-0.1) 10^3/uL Absolute Nucleated RBC 0.00 x10^3/uL Nucleated RBC % 0.0 /100WBC
[2021-10-10] MEDS ORDERED: diphenhydrAMINE 25 MG CAPSULE PO SCH (10:00)
[2021-10-10] MEDS ORDERED: IRON DEXTRAN 1,000 MG in SODIUM CHLORIDE 0.9% 250 ML IV ONE (10:30)
[2021-10-10 17:36] LABS: BASOPHILS % (AUTO) 0.3 %; EOSINOPHILS # (AUTO) 0.1 10^3/uL (0.0-0.7); EOSINOPHILS % (AUTO) 0.6 %; HCT - HEMATOCRIT 20.1 % (37.0-47.0); LYMPHOCYTES # (AUTO) 1.8 10^3/uL (1.5-3.5); MEAN CORPUSCULAR HEMOGLOBIN 28.4 pg (27.0-31.0); MEAN CORPUSCULAR HGB CONC 33.3 g/dL (32.0-36.0); MEAN CORPUSCULAR VOLUME 85.2 fL (81.0-99.0); MEAN PLATELET VOLUME 11.5 fL (7.9-10.8); MONOCYTES # (AUTO) 0.9 10^3/uL (0.0-1.0); MONOCYTES % (AUTO) 5.6 %; NEUTROPHILS # (AUTO) 12.9 10^3/uL (1.5-6.6); NEUTROPHILS % (AUTO) 80.5 %; NRBC ABSOLUTE COUNT (AUTO) 0.02 x10^3/uL; NUCLEATED RED BLOOD CELLS AUTO 0.1 /100WBC; PLT - PLATELET COUNT 149 10^3/uL (130-450); RED BLOOD COUNT 2.36 10^6/uL (4.20-5.40); RED CELL DISTRIBUTION WIDTH 14.6 % (12.0-15.0)
[2021-10-10 17:42] LABS: HGB - HEMOGLOBIN 6.7 g/dL (12.0-16.0); SLIDE REVIEW? Indicated
--- NOTE | 2021-10-10 17:52 | PROVIDER PROGRESS NOTE ---
Subjective - Prog Note Date Prog Note Date: 10/10/21 Prog Note Time: 17:51 - Subjective Pt reports feeling: Improved Subjective: Patient feeling much better. Ambulating without difficulty. Tachycardia resolved, bp back to 130s/60s. Still somewhat pale. Pain managed with oral medications. Repeat hemoglobin 6.7. While symptoms have improved, will transfuse second unit of PRBC. Objective - Vital Signs/Intake & Output Vital Signs: Vital Signs x48h Temp Pulse Pulse Resp BP BP Pulse Ox 10/10/21 16:27 97.9 F 90 18 132/67 H 98 10/10/21 13:18 98.2 F 112 H 18 114/58 L 10/10/21 12:59 98.2 F 108 H 18 111/57 L 10/10/21 12:00 98.2 F 101 H 101 H 20 121/65 121/65 100 10/10/21 10:59 98.6 F 97 18 110/56 L 10/10/21 10:32 98.6 F 101 H 18 111/61 10/10/21 10:23 98.6 F 101 H 20 113/63 10/10/21 10:17 99.0 F 98 20 118/60 Intake & Output: Intake & Output 10/07/21 10/08/21 10/09/21 10/10/21 23:59 23:59 23:59 23:59 Intake Total 600 2965.000 2380 1670 Output Total 450 3474 3060 Balance 600 2515.000 -1094 -1390 - Lab Results Fish Bones: 10/10/21 17:17 10/09/21 08:40 Other Labs: Lab Results x24hrs 10/10/21 10/10/21 10/07/21 Range/Units 17:17 06:45 18:16 WBC 16.0 H 16.4 H (4.8-10.8) x10^3/uL RBC 2.36 L 2.17 L (4.20-5.40) 10^6/uL Hgb 6.7 L* 6.3 L* (12.0-16.0) g/dL Hct 20.1 L 18.6 L* (37.0-47.0) % MCV 85.2 85.7 (81.0-99.0) fL MCH 28.4 29.0 (27.0-31.0) pg MCHC 33.3 33.9 (32.0-36.0) g/dL RDW 14.6 14.4 (12.0-15.0) % Plt Count 149 137 (130-450) 10^3/uL MPV 11.5 H 11.7 H (7.9-10.8) fL Neut # (Auto) 13.8 H (1.5-6.6) 10^3/uL Lymph # (Auto) 1.5 (1.5-3.5) 10^3/uL [place] # (Auto) 0.9 (0.0-1.0) 10^3/uL Eos # (Auto) 0.1 (0.0-0.7) 10^3/uL Baso # (Auto) 0.1 (0.0-0.1) 10^3/uL Absolute Nucleated RBC 0.00 x10^3/uL Nucleated RBC % 0.0 /100WBC Manual Slide Review Indicated Blood Type A NEGATIVE Antibody Screen NEGATIVE Crossmatch IS Only See Detail
[2021-10-10 18:07] LABS: PLATELET ESTIMATE, MANUAL NORMAL (130-450,000) (NORMAL); PLATELET MORPHOLOGY NORMAL APPEARANCE (NORMAL); RBC MORPHOLOGY (MULTIPLE) 2+ HYPOCHROMASIA (NORMAL)
[2021-10-10] MEDS ORDERED: diphenhydrAMINE 25 MG CAPSULE PO ONE (19:00)
[2021-10-10] MEDS: SODIUM CHLORIDE FLUSH 0.9% 10 ML SYRINGE IVP SCH (21:56)
[2021-10-11 02:29] LABS: HGB - HEMOGLOBIN 7.9 g/dL (12.0-16.0)
[2021-10-11] MEDS: IBUPROFEN 600 MG TABLET PO SCH ×3 (04:35→16:58)
[2021-10-11] MEDS: ACETAMINOPHEN 500 MG TABLET PO SCH ×2 (06:37→14:01)
[2021-10-11] MEDS: DOCUSATE SODIUM 100 MG CAPSULE PO SCH (08:16)
[2021-10-11] MEDS: SIMETHICONE CHEW 80 MG TABLET PO PRN ×2 (08:16→14:01)
--- NOTE | 2021-10-11 09:42 | Discharge Plan ---
Discharge Plan Problem Reviewed?: Yes Disposition: Home, Self Care Condition: Good Diet: Regular Activity Restrictions: Per instructions Shower Restrictions: No No Smoking: If you smoke, Please STOP! Call for help. Follow-up with: Charlotte Espino MD [Primary Care Provider] -
--- NOTE | 2021-10-11 09:43 | DISCHARGE SUMMARY ---
Discharge Summary Admit Date: 10/07/21 Discharge Date: 10/11/21 Discharging Provider: Eddie Fraser MD Code Status: Attempt Resuscitation Condition at Discharge: Good Discharge Disposition: 01 Home, Self Care - DIAGNOSES Admission Diagnoses: 37 weeks gestation Term labor/SROM Chronic hypertension Discharge Diagnoses with Status of Each Condition: 37 weeks gestation: Delivered Term labor/SROM: Delivered Chronic hypertension: Stable Prolonged rupture of membranes: Delivered Prolonged second stage: Delivered Failed attempted vacuum-assisted vaginal delivery: Delivered Failure of descent: Delivered Status post primary low transverse section: Stable Status post repair of cystotomy: Stable hemorrhage: Stable - HPI History of Present Illness: Subjective Patient reports she is doing well. Lochia appropriate. Denies heavy bleeding. Ambulating without difficulty, however getting the shower was difficult for climbing over the bath edge.. Pelvic and abdominal pain well-controlled. Tolerating oral intake. Diet: Regular. Voiding without difficulty. Catheter remains in place. Passing flatus. Had bowel movement this morning. Patient is bonding with baby in room Breast feeding going well. Baby not gaining sufficient weight. Denies feeling lightheaded, dizzy or excessively fatigued Objective General: Alert, oriented, no apparent distress. Cardiovascular: Regular rate. Regular rhythm. Lungs: No increased work of breathing. Abdomen: Uterus firm. Below umbilicus. No guarding or rebound. Bowel sounds normal. Appropriate tenderness. Incision: Clean, dry, and intact. - HOSPITAL COURSE Hospital Course: Patient was a 26-year-old G1, P0 who presented at 37 weeks gestation in term labor. She had rupture of membranes and had a long labor course. She had prolonged rupture of membranes at the time of being complete. She then had a prolonged second stage of labor and had an attempted vacuum-assisted vaginal delivery, but this was unsuccessful so went for a urgent section for failure to descend. During the surgery, she had an injury to the bladder during the removal of impacted head where the catheter pushed through the dome of the bladder. This was repaired at the time of surgery. She also had a po stpartum hemorrhage. On postoperative day 1, catheter was replaced and had clear urine from that time. She voided well throughout the course. Due to the hemorrhage, she received 2 units of packed red blood cells which stabilized her blood levels and vital signs. She was able to ambulate without difficulty. On day 3, she was doing well, however her was still admitted for assessment of weight gain. Cabrales catheter to remain in place for a total of 1 week. Will get a cystography later this week for assessment of bladder integrity and removal of catheter at that time. She was discharged in good condition, boarding in the hospital with baby as he remains inpatient. birthweight 2912 g, Apgars of 5 at 1 minute, 7 at 5 minutes, 8 at 10 minutes. - ALLERGIES Allergies/Adverse Reactions: Allergies Allergy/AdvReac Type Severity Reaction Status Date / Time barley Allergy Hives Verified 10/07/21 16:54 broccoli Allergy Hives Verified 10/07/21 16:53 egg Allergy Hives Verified 10/07/21 16:53 oxycodone Allergy Dizziness Verified 06/21/18 23:16 pineapple Allergy Hives Verified 10/07/21 16:48 strawberry Allergy Hives Verified 10/07/21 16:52 tomato Allergy Hives Verified 10/07/21 16:54 - MEDICATIONS Home Medications: Ambulatory Orders Medication Instructions Recorded Confirmed Labetalol [Trandate] 100 mg PO BID 09/15/21 09/15/21 Acetaminophen [Acetaminophen Extra 1,000 mg PO Q8H PRN #60 tablet 10/11/21 Strength] Docusate Sodium 100Mg Capsule 100 - 200 mg PO BID PRN #60 cap 10/11/21 [Colace 100Mg Capsule] Ibuprofen [Motrin] 600 mg PO Q6H PRN #30 tab 10/11/21 oxyCODONE [Roxicodone] 2.5 - 5 mg PO Q4H PRN #24 tablet 10/11/21 - LABS Result Diagrams: 10/11/21 02:19 10/09/21 08:40 - FOLLOW UP Follow Up: Follow-up with Dr. Fraser on for assessment of blood pressure, incision, and catheter removal. Plan for cystography prior to that visit. - TIME SPENT Time Spent in Discharge (Minutes): 30
[2021-10-11 12:31] VITALS: BP 127/71
--- NOTE | 2021-10-11 17:26 | Labor Flowsheet ---
Labor Flowsheet Datetime Report Generated by CPN: 10/11/2021 17:26 Datetime: 10/11/2021 12:22 VITAL SIGNS NBP Sys/Cyndee/Mean (mmHg): 127 : 71 : 82 Pulse: 88 LaborFlag: Labor Datetime: 10/10/2021 19:10 SpO2 (%): 98 Datetime: 10/08/2021 23:00 ASSESSMENT A Monitor Mode: Doppler FHR Baseline Rate : 125 (Annotations: Doppler done back in OR prior to abdominal prep. Provider at bedside.) Datetime: 10/08/2021 22:38 UTERINE ACTIVITY Monitor Mode: External Frequency (min): 3 Quality: Moderate Duration (sec): 60-110 Pattern: Normal: <= 5 Contractions in 10 Minutes Resting Tone (Palpate): Relaxed Variability: Moderate 6-25 bpm Accelerations: 15X15 Decelerations: None Category: Category I Datetime: 10/08/2021 22:30 Medication Comments: pit off Datetime: 10/08/2021 22:28 Communication Comments: anesthesia at bedside Datetime: 10/08/2021 22:19 Vacuum: Pop Off Datetime: 10/08/2021 21:39 I/O Interventions: Straight Cath (ml) @ 50 Datetime: 10/08/2021 21:22 STAGE 2 Pushing: Coached on Pushing; Urge to Push Pushing Position: Pushing with Contractions; Pushing Lithotomy Pushing Progress: Descent with Pushing; Perineal Bulging Stage 2 Comments: pushing with feet on squat bar Datetime: 10/08/2021 20:39 Patient Position/Activity: High Fowlers Patient Care Comments: modified squat position. foot of bed down and sitting up in high fowlers Datetime: 10/08/2021 20:33 Temperature (C): 36.2 Datetime: 10/08/2021 19:28 Provider Notified (Name): Dr. Evelio Datetime: 10/08/2021 19:15 Monitor Interventions for FHR: Ultrasound Adjusted Datetime: 10/08/2021 18:36 MEDICATIONS Pitocin (milliunits): Started @ 2 Datetime: 10/08/2021 17:30 [place] Units (mmHg): 115 Datetime: 10/08/2021 17:28 VAGINAL EXAM Dilatation (cm): 10.0 Effacement (%): 100 Station: 0 Exam by: Dr. Fraser Datetime: 10/08/2021 17:10 Contraction Comments: unable to visualize peaks of ctx to accurately calculate MVUs Datetime: 10/08/2021 17:05 Stage of : Labor COMMUNICATION Communication: Call/Page Placed to Provider Notification Reason: Pain Datetime: 10/08/2021 17:00 Vaginal Bleeding: Normal Show Vaginal Exam Comments: small amount of bloody show noted with pad change Datetime: 10/08/2021 16:56 PAIN Pain Scale: 10 Pain Location: Right Groin Pain Assessment Comments: pain in R groin, right back, right inner thigh down to knee. Datetime: 10/08/2021 16:15 Comfort Measures: Hot/Cold Pack Datetime: 10/08/2021 15:31 Analgesics/Sedatives: Tylenol (mg) @ 1000mg Datetime: 10/08/2021 15:28 Anesthesia Comments: PRACTICE OFFICE ASSOCIATE Lucas @ bedside Datetime: 10/08/2021 15:00 Anesthesia Level Check: T8- Ribs Datetime: 10/08/2021 14:55 Pain Presence: Intermittent Pain Type: Sharp Pain Relief Measures: Comfort Measures Datetime: 10/08/2021 12:34 Monitor Interventions for UA: [place] Adjusted Datetime: 10/08/2021 12:01 Respirations: 20 Temperature Route: Oral Datetime: 10/08/2021 11:16 Cervix, Consistency: Moderate Cervix, Position: Midposition Datetime: 10/08/2021 10:30 Intensity IUP (mmHg): 60 Datetime: 10/08/2021 10:01 Provider Reviewed Strip: Yes Datetime: 10/08/2021 09:50 ANESTHESIA Anesthesia Plans: Epidural Epidural Procedure Other: Pump Started Datetime: 10/08/2021 09:39 Epidural Procedure: Test Dose Datetime: 10/08/2021 09:31 PROCEDURE TIME OUT Procedure Verify: Correct Patient Position Epidural Positioning: Sitting Datetime: 10/08/2021 09:06 Pain Coping: Requesting Pain Medication or Epidural Datetime: 10/08/2021 08:00 MATERNAL ASSESSMENT Level of Consciousness: Alert DTR's/Clonus: DTRs 1+; No Clonus Headache: Denies Breath Sounds, Left: Clear and Equal Breath Sounds, Right: Clear and Equal Nausea/Vomiting: Denies RUQ Epigastric Pain: Denies TEACHING Instructional Method: Verbal Plan of Care: Plan of Care Discussed; Vaginal Delivery; Labor Unit Routine: [place] to Room; Bed; Unit Personnel; Monitoring; Safety/Fall Risk Prevention; D iet/Nutrition Services Labor/Induction: Augmentation Pain Management: IV Narcotics; Epidural; PRN Medications; Pain Scale/Goals; Comfort Measures Medications: Pitocin Related: Common Discomforts of ; Nutrition; Hydration; Activity and Rest Datetime: 10/08/2021 07:01 Pitocin Checklist: At Least 1 Acceleration of 15 bpm x 15 Seconds in 30 Minutes or Adequate Variabi lity; No More than 1 Late Deceleration Occurred in Past 30 Minutes; No More than 2 Variable Decelerat ions > 60 Seconds in Duration and decreasing >60 bpm in 30 minutes; No More than 5 Uterine Contractio ns in 10 Minutes for any 20 Minute Interval; Uterus Palpates Soft between Contractions FHR Baseline Changes: No Baseline Change Oxygen Method: Room Air Datetime: 10/08/2021 03:17 Comments: EFM monitor battery , exchanged for new monitor Datetime: 10/08/2021 00:00 Antiemetics/Antacids: Zofran (mg) @ 4 Datetime: 10/07/2021 18:35 PATIENT CARE IV/Blood Work: New IV Bag Hung; IV Bag Number @ 1
--- NOTE | 2021-10-14 00:31 | PROCEDURE REPORT ---
- HPI Diagnosis/Indication for NST: Pre- Hypertension Current EDU 10/28/21 Gestation 37 Weeks and 0 Days 3 Para 0 Vital Signs Temperature 98.4 F 10/07/21 16:15 Heart Rate 112 H 10/07/21 16:15 Respiratory Rate 18 10/07/21 16:15 Blood Pressure 112/74 10/07/21 16:15 Temperature 97.9 F 10/11/21 12:30 Heart Rate 89 10/11/21 12:30 Respiratory Rate 18 10/11/21 12:30 Blood Pressure 127/71 10/11/21 12:30 O2 Saturation 100 10/11/21 12:30 - NST Procedure NST Procedure Start Date 10/07/21 Start Time 16:15 Stop Time 17:00 Vibroacoustic Stimulation Used No Patient States Movement Yes EFM 140 mod jason 15x15 accels no decels TOCO: Q3-4 min, mild. - Results and Plan Findings/Impression: Cat I tracing Plan: Patient is a 26 to at 37+0 wga who presents with ruptured membranes Cat I tracing Admit to inpatient care
== END 2021-10-11 17:25 | disposition home or self-care (01) | DRG 786 ==
LOC: FBP 16:05 → WFO 16:05 → FBP 17:01
PROVIDERS: ADMIT Obstetrics & Gynecology; ATTEND Obstetrics & Gynecology
PROC: 10D00Z1 Extraction of Products of Conception, Low, Open Approach (ICD-10-PCS; principal; 2021-10-09)
PROC: 0TQB0ZZ Repair Bladder, Open Approach (ICD-10-PCS; 2021-10-09)
PROC: 10H07YZ Insertion of Other Device into Products of Conception, Via Natural or Artificial Opening (ICD-10-PCS; 2021-10-09)
PROC: 30233N1 Transfusion of Nonautologous Red Blood Cells into Peripheral Vein, Percutaneous Approach (ICD-10-PCS; 2021-10-10)
DX: O10.92 Unspecified pre-existing hypertension complicating childbirth (principal); O99.42 Diseases of the circulatory system complicating childbirth; N99.71 Accidental puncture and laceration of a genitourinary system organ or structure during a genitourinary system procedure; O72.1 Other immediate postpartum hemorrhage; O63.1 Prolonged second stage (of labor); I95.9 Hypotension, unspecified; O66.5 Attempted application of vacuum extractor and forceps; Z3A.37 37 weeks gestation of pregnancy; Z37.0 Single live birth; O35.8XX0 Maternal care for other (suspected) fetal abnormality and damage, not applicable or unspecified; O99.344 Other mental disorders complicating childbirth; F41.9 Anxiety disorder, unspecified; O32.4XX0 Maternal care for high head at term, not applicable or unspecified; O75.81 Maternal exhaustion complicating labor and delivery; O76 Abnormality in fetal heart rate and rhythm complicating labor and delivery; O90.81 Anemia of the puerperium; Y65.8 Other specified misadventures during surgical and medical care; Y92.234 Operating room of hospital as the place of occurrence of the external cause; O99.214 Obesity complicating childbirth
CPT/HCPCS: 36415; 59025; 80053; 83033; 83605; 84112; 85014; 85018; 85025; 86850; 86870; 86900; 86901; 86920; 86922; 99215; A9270; J1750; J2274; J7120; P9016

== ENCOUNTER 2021-10-13 05:57 | Emergency (ER) | payer OTHER ==
[2021-10-13 06:11] VITALS: BP 136/79
--- NOTE | 2021-10-13 06:48 | ED Physician Documentation ---
History of Present Illness - Stated complaint Stated Complaint: CATHETER NOT DRAINING - Chief complaint Chief Complaint: Abd Pain - History obtained from History obtained from: Patient - History of Present Illness Timing: Today - Additonal information Additional information: 4 days [id number] complicated by perforated bladder for which she has taylor catheter in place. She had sensation of bladder fullness with urge to urinate but no urine output over past few hours. She contacted cashier supervisor director clinical operations and was advised to come to ED. She says that since calling cashier supervisor but prior to arrival, she had some UO into the bag with significant improvement in the symptoms Review of Systems Constitutional: denies: Fever GI: denies: Abdominal Pain : reports: Taylor Problem PD PAST MEDICAL HISTORY - Past Medical History Cardiovascular: None Respiratory: None Neuro: Other (has right leg nerve pain, swelling at times. Lateral and posterior lower leg pain.) GI: None - Past Surgical History Past Surgical History: No - Present Medications Home Medications: Ambulatory Orders Medication Instructions Recorded Confirmed Labetalol [Trandate] 100 mg PO BID 09/15/21 09/15/21 Acetaminophen [Acetaminophen Extra 1,000 mg PO Q8H PRN #60 tablet 10/11/21 Strength] Docusate Sodium 100Mg Capsule 100 - 200 mg PO BID PRN #60 cap 10/11/21 [Colace 100Mg Capsule] Ibuprofen [Motrin] 600 mg PO Q6H PRN #30 tab 10/11/21 oxyCODONE [Roxicodone] 2.5 - 5 mg PO Q4H PRN #24 tablet 10/11/21 - Allergies Allergies/Adverse Reactions: Allergies Allergy/AdvReac Type Severity Reaction Status Date / Time barley Allergy Hives Verified 10/13/21 14:58 broccoli Allergy Hives Verified 10/13/21 14:58 egg Allergy Hives Verified 10/13/21 14:58 oxycodone Allergy Dizziness Verified 10/13/21 14:58 pineapple Allergy Hives Verified 10/13/21 14:58 strawberry Allergy Hives Verified 10/13/21 14:58 tomato Allergy Hives Verified 10/13/21 14:58 - Social History Does the pt smoke?: No Smoking Status: Never smoker Does the pt drink ETOH?: No Does the pt have substance abuse?: No - Immunizations Immunizations are current?: Yes - POLST Patient has POLST: No PD ED PE NORMAL - Vitals Vital signs reviewed: Yes - General General: Alert and oriented X 3, No acute distress, Well developed/nourished - Abdomen Abdomen: Soft, Non tender Results - Vitals Vitals: Oxygen O2 Source Room air PD MEDICAL DECISION MAKING - ED course Complexity details: considered differential, d/w patient ED course: clear, yellow urine noted in tubing leading to the taylor (leg) bag but not draining into the bag. Bladder scan result of 20 ml. The catheter bag is removed and using sterile technique, ED RN was able to easily flush the catheter with sterile saline (50cc in with same return; solitary, small blood clot noted). The leg bag is replaced with a new bag. Departure - Departure Disposition: 01 Home, Self Care Clinical Impression: Taylor catheter problem Qualifiers: Encounter type: initial encounter Qualified Code(s): T83.9XXA - Unspecified complication of genitourinary prosthetic device, implant and graft, initial encounter Condition: Good Instructions: ED Catheter Care Taylor Comments: It is not clear why your catheter seemed to not be draining earlier, but it is working well at this time; we were able to flush the catheter with sterile saline without resistance . The catheter bag has been replaced, as it appeared that the urine was stuck in the tubing but not draining into the bag until it was replaced. Discharge Date/Time: 10/13/21 07:33
== END 2021-10-13 07:33 | disposition home or self-care (01) ==
LOC: ED 05:57
DX: O99.893 Other specified diseases and conditions complicating puerperium (principal); T83.011A Breakdown (mechanical) of indwelling urethral catheter, initial encounter
CPT/HCPCS: 99281; 99282

== ENCOUNTER 2021-10-13 14:46 | Emergency (ER) | payer OTHER ==
--- NOTE | 2021-10-13 15:32 | ED Physician Documentation ---
History of Present Illness - Stated complaint Stated Complaint: INCISION OPEN, CATH - Chief complaint Chief Complaint: Abd Pain - Additonal information Additional information: 26-year-old female presents to the emergency department for evaluation of concerns that she may have disrupted her Taylor catheter. She had a Taylor placed during her labor on 06 October. Unfortunately at some point she did end up with a bladder neck. She did have a section to successfully deliver the baby. She was seen earlier this morning for concerns that her Taylor was not functioning and was discharged home. She reports that this afternoon she was getting out of her car when she felt her Taylor catheter pool. She had some pain at the insertion point. A little bit later when she was on the toilet she noticed a few drops of urine drop into the toilet though it was not coming from the Taylor. She has not had any fevers since being discharged from the emergency department. Her surgical incision is clean dry and intact without drainage. She is trying to get a urethral cystogram completed as an outpatient but is finding challenges with . The Taylor is draining clear yellow urine without any sediment or obvious blood. 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 - Present Medications Home Medications: Ambulatory Orders Medication Instructions Recorded Confirmed Labetalol [Trandate] 100 mg PO BID 09/15/21 09/15/21 Acetaminophen [Acetaminophen Extra 1,000 mg PO Q8H PRN #60 tablet 10/11/21 Strength] Docusate Sodium 100Mg Capsule 100 - 200 mg PO BID PRN #60 cap 10/11/21 [Colace 100Mg Capsule] Ibuprofen [Motrin] 600 mg PO Q6H PRN #30 tab 10/11/21 oxyCODONE [Roxicodone] 2.5 - 5 mg PO Q4H PRN #24 tablet 10/11/21 - Allergies Allergies/Adverse Reactions: Allergies Allergy/AdvReac Type Severity Reaction Status Date / Time barley Allergy Hives Verified 10/13/21 14:58 broccoli Allergy Hives Verified 10/13/21 14:58 egg Allergy Hives Verified 10/13/21 14:58 oxycodone Allergy Dizziness Verified 10/13/21 14:58 pineapple Allergy Hives Verified 10/13/21 14:58 strawberry Allergy Hives Verified 10/13/21 14:58 tomato Allergy Hives Verified 10/13/21 14:58 - Social History Does the pt smoke?: No Smoking Status: Never smoker Does the pt drink ETOH?: No Does the pt have substance abuse?: No - Immunizations Immunizations are current?: Yes - POLST Patient has POLST: No PD ED PE EXPANDED - General General: Alert, No acute distress - Cardiac Cardiac: Regular Rate, Radial strong equal, Pedal strong equal, Cap refill < 2 sec - Respiratory Respiratory: Clear to ausultation walt. No: Distress, Labored - Abdomen Abdomen: Other (low transverse incision, clean, dry intact. no drainage or surrounding erythema) - Female Female : Other (Taylor catheter seen exiting the urethra. It appears well seated. Clear yellow urine is draining.) Results - Vitals Vitals: Vital Signs - 24 hr 10/13/21 14:53 Temperature 36.1 C L Heart Rate 96 Respiratory 18 Rate Blood Pressure 143/94 H O2 Saturation 100 Oxygen O2 Source Room air PD MEDICAL DECISION MAKING - ED course Complexity details: re-evaluated patient, considered differential, d/w patient ED course: 26-year-old female comes to the emergency department for evaluation of her Taylor catheter that has been in place since a difficult delivery on 07 October. She subsequently had a CT section. At some point there was a laceration of her bladder. Her Taylor was tugged on when she was getting out of her vehicle this afternoon and since then she has had some minor pain in her urethral area and felt that she had dribbled a small amount of urine into the toilet. On presentation she appears rather well. incision is clean dry and intact without any findings of infection. Her Taylor catheter is noted to be draining clear urine. And on exam as well seated Routine care of the a Taylor catheter was discussed emergent return precautions a lso discussed. Vital signs are stable Departure - Departure Disposition: 01 Home, Self Care Clinical Impression: Taylor catheter in place Comments: Sallie your Taylor catheter appears to be draining well. I do recommend that you wear the leg bag a little higher on your leg as when it is worn so low it may be stretching and pulling excessively 1 year walking or getting in and out of the vehicle. If any point you find that the Taylor catheter stops draining, you develop fevers, have lower abdominal pain, develop bloody in your urine then please return immediately to the ER. Continue to follow-up for the cystoscopy gram that has already been referred.
[2021-10-13 16:22] VITALS: BP 136/85
== END 2021-10-13 16:22 | disposition home or self-care (01) ==
LOC: ED 14:46
DX: Z46.6 Encounter for fitting and adjustment of urinary device (principal)

== ENCOUNTER 2021-10-15 15:40 | Outpatient (CLI) | payer OTHER ==
[2021-10-15] MEDS ORDERED: iohexoL-300 100 ML VIAL ONE (15:59)
[2021-10-15] MEDS ORDERED: iohexoL-300 100 ML VIAL IVP ONE (16:58)
--- NOTE | 2021-10-15 17:20 | CT Report ---
PROCEDURE: IVP INDICATIONS: BLADDER INJURY CONTRAST: IV CONTRAST: Optiray 320 ml: 140 PO CONTRAST: *NO PO CONTRAST TECHNIQUE: After the administration of oral and intravenous contrast, 5 mm thick sections acquired from the diap hragms to the symphysis. 5 mm thick coronal and sagittal reformats were acquired. For radiation dos e reduction, the following was used: automated exposure control, adjustment of mA and/or kV accordin g to patient size. COMPARISON: None. FINDINGS: Image quality: Excellent. Lung bases: Lung bases are clear. Heart size is normal. Urinary system: Both kidneys are normal in size and enhancement. Contrast-filled renal calyces are normal in morphology. Contrast filled portions of both ureters are normal in caliber. Bladder wall thickness is normal. Solid organs: Liver and spleen are normal in size and enhancement. Gallbladder is normal Biliary s ystem is non dilated. Pancreas enhances normally. No adrenal nodules. Peritoneum and bowel: Bowel loops demonstrate normal wall thickness and caliber. No free fluid or a ir. Nodes and vessels: No retroperitoneal or mesenteric adenopathy by size criteria. Aorta and inferior vena cava are normal in size. Abdominal wall: No ventral hernias. Pelvis: No pathologic free pelvic fluid. No inguinal hernias or adenopathy. The uterus is enlarged consistent with recent and . No abnormal postoperative fluid collection. Bones: No suspicious bony lesions. No vertebral body compression fractures. IMPRESSION: Normal CT urogram with no evidence of urinary leak. Reviewed by: Anup Olivares on 10/15/2021 5:19 PM PST Approved by: Anup Olivares on 10/15/2021 5:19 PM PST Station ID: [id number]
== END 2021-10-15 15:41 | disposition home or self-care (01) ==
LOC: DI 15:40
PROVIDERS: ATTEND Obstetrics & Gynecology
DX: O71.5 Other obstetric injury to pelvic organs (principal); Z3A.00 Weeks of gestation of pregnancy not specified
CPT/HCPCS: 74178; Q9967

== ENCOUNTER 2022-01-20 08:00 | Outpatient (CLI) | payer OTHER ==
[2022-01-20 12:24] LABS: BILIRUBIN,URINE NEGATIVE (NEGATIVE); GLUCOSE, URINE (UA) NEGATIVE (NEGATIVE); KETONES,URINE (UA) NEGATIVE (NEGATIVE); LEUKOCYTE ESTERASE, URINE NEGATIVE (NEGATIVE); NITRITE,URINE NEGATIVE (NEGATIVE); OCCULT BLOOD,URINE NEGATIVE (NEGATIVE); PROTEIN,URINE NEGATIVE (NEGATIVE); UROBILINOGEN,URINE 0.2 (NORMAL) E.U./dL (NORMAL)
[2022-01-20 12:27] LABS: CLARITY,URINE CLOUDY (CLEAR)
[2022-01-20 12:47] LABS: RBC,URINE None Seen /HPF (0-5); SQUAMOUS EPITHELIAL CELL,UR RARE Squamous (<= Few); WBC,URINE 0-3 /HPF (0-5)
[2022-01-20 12:48] LABS: AMORPHOUS SEDIMENT,UR Marked /LPF; BACTERIA,URINE Few /HPF (None Seen)
[2022-01-20 16:59] LABS: BACTERIAL VAGINOSIS DNA NEGATIVE (NEGATIVE); CANDIDA GLABRATA DNA NEGATIVE (NEGATIVE); CANDIDA GROUP DNA NEGATIVE (NEGATIVE); CANDIDA KRUSEI DNA NEGATIVE (NEGATIVE); TRICHOMONAS VAGINALIS DNA NEGATIVE (NEGATIVE)
== END 2022-01-20 23:59 | disposition home or self-care (01) ==
LOC: LAB.WC 08:00
PROVIDERS: ATTEND Obstetrics & Gynecology
DX: N30.00 Acute cystitis without hematuria (principal); N76.0 Acute vaginitis; O71.5 Other obstetric injury to pelvic organs
CPT/HCPCS: 81001; 81514; 87086

== ENCOUNTER 2022-02-06 11:21 | Emergency (ER) | payer OTHER ==
[2022-02-06 11:29] VITALS: BP 140/96
[2022-02-06] MEDS ORDERED: IBUPROFEN 800 MG TABLET PO STA (12:11)
--- NOTE | 2022-02-06 12:15 | ED Physician Documentation ---
PD HPI BACK PAIN - Stated complaint Stated Complaint: LT BACK/SIDE PX - Chief complaint Chief Complaint: Back Pain - History obtained from History obtained from: Patient - Additional information Additional information: Around 1030 this morning she was walking downstairs carrying her baby in a front carrier and she fell backwards hitting her back on the stairs and has mild low back pain and left posterior rib pain. No other injuries. No head injury. It happened because her knee gave out on her, the right one, this is not a new issue. She is more worried about her baby than herself. Review of Systems Constitutional: denies: Fever, Chills, Fatigue Cardiac: denies: Chest pain / pressure, Palpitations Respiratory: denies: Dyspnea, Cough PD PAST MEDICAL HISTORY - Past Medical History Cardiovascular: None Respiratory: None Neuro: Other (has right leg nerve pain, swelling at times. 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 - Present Medications Home Medications: Ambulatory Orders Medication Instructions Recorded Confirmed Labetalol [Trandate] 100 mg PO BID 09/15/21 09/15/21 Acetaminophen [Acetaminophen Extra 1,000 mg PO Q8H PRN #60 tablet 10/11/21 Strength] Docusate Sodium 100Mg Capsule 100 - 200 mg PO BID PRN #60 cap 10/11/21 [Colace 100Mg Capsule] Ibuprofen [Motrin] 600 mg PO Q6H PRN #30 tab 10/11/21 oxyCODONE [Roxicodone] 2.5 - 5 mg PO Q4H PRN #24 tablet 10/11/21 - Allergies Allergies/Adverse Reactions: Allergies Allergy/AdvReac Type Severity Reaction Status Date / Time barley Allergy Hives Verified 02/06/22 11:29 broccoli Allergy Hives Verified 02/06/22 11:29 egg Allergy Hives Verified 02/06/22 11:29 oxycodone Allergy Dizziness Verified 02/06/22 11:29 pineapple Allergy Hives Verified 02/06/22 11:29 strawberry Allergy Hives Verified 02/06/22 11:29 tomato Allergy Hives Verified 02/06/22 11:29 - Social History Does the pt smoke?: No Smoking Status: Never smoker Does the pt drink ETOH?: No Does the pt have substance abuse?: No - Immunizations Immunizations are current?: Yes - POLST Patient has POLST: No PD ED PE NORMAL - Vitals Vital signs reviewed: Yes - General General: Alert and oriented X 3, No acute distress - HEENT HEENT: PERRL, EOMI - Neck Neck: Supple, no meningeal sign, No bony TTP - Respiratory Respiratory: No respiratory distress, Clear bilaterally - Abdomen Abdomen: Non tender - Back Back: Other (Mild diffuse thoracic spinal tenderness and mild tenderness around the ninth rib in the posterior axillary line on the left. There is also mild lumbar spine tenderness) - Extremities Extremities: No edema, No calf tenderness / cord - Neuro Neuro: Alert and oriented X 3, Normal speech Eye Opening: Spontaneous Motor: Obeys Commands Verbal: Oriented GCS Score: 15 Results - Vitals Vitals: Vital Signs - 24 hr 02/06/22 11:26 Temperature 36.6 C Heart Rate 113 H Respiratory 18 Rate Blood Pressure 140/96 H O2 Saturation 98 Oxygen O2 Source Room air - Rads (name of study) X-rays of the left ribs and chest and lumbar spine are unremarkable Radiology: EMP read contemporaneously Departure - Departure Disposition: 01 Home, Self Care Clinical Impression: Fall down stairs Qualifiers: Encounter type: initial encounter Qualified Code(s): W10.8XXA - Fall (on) (from) other stairs and steps, initial encounter Back contusion Qualifiers: Encounter type: initial encounter Laterality: left Qualified Code(s): S20.222A - Contusion of left back wall of thorax, initial encounter Condition: Good Record reviewed to determine appropriate education?: Yes Instructions: ED Contusion Back Comments: Return if you worsen, otherwise you can take 2 extra drink Tylenol or 3 ibuprofen every 6 hours as needed for the pain. Recheck with your doctor in a week if not better.
--- NOTE | 2022-02-06 13:13 | XRAY Report ---
PROCEDURE: Lumbar Spine 2 View INDICATIONS: back injury TECHNIQUE: 2 views of the lumbar spine were acquired. COMPARISON: None. FINDINGS: Bones: 5 [id number] vertebrae are present. There is normal bony alignment. No vertebral body compression fractures. No suspicious bony lesions. Mild to moderate disc and foraminal narrowing is present at L5-S1. Soft tissues: Overlying bowel gas pattern is normal. No suspicious soft tissue calcifications. IMPRESSION: No visualized acute fracture or dislocation. However, occult injury cannot be excluded. Recommend short interval imaging follow-up in 7-10 days as clinically indicated for additional evalua tion. Reviewed by: Yolanda Darden MD on 02/06/2022 1:11 PM PDT Approved by: Yolanda Darden MD on 02/06/2022 1:11 PM PDT Station ID: [id number]
--- NOTE | 2022-02-06 13:14 | XRAY Report ---
PROCEDURE: Ribs w/PA Chest LT INDICATIONS: back injury TECHNIQUE: 3 views of the left ribs were acquired, along with a single view chest. COMPARISON: None FINDINGS: Surgical changes and devices: None. Bones and chest wall: No fractures or dislocations. No suspicious bony lesions. Overlying soft tis sues appear unremarkable. Lungs and pleura: No pleural effusions or pneumothorax. Lungs appear clear. Mediastinum: Mediastinal contours appear normal. Heart size is normal. IMPRESSION: No visualized acute fracture or dislocation. However, occult injury cannot be excluded. Recommend columb[place] rt interval imaging follow-up in 7-10 days as clinically indicated for additional evaluation. Reviewed by: Yolanda Darden MD on 02/06/2022 1:12 PM PDT Approved by: Yolanda Darden MD on 02/06/2022 1:12 PM PDT Station ID: [id number]
== END 2022-02-06 13:19 | disposition home or self-care (01) ==
LOC: ED 11:21
DX: S20.222A Contusion of left back wall of thorax, initial encounter (principal); W10.9XXA Fall (on) (from) unspecified stairs and steps, initial encounter
CPT/HCPCS: 71101; 72100; 99282; 99283; A9270

== ENCOUNTER 2022-02-19 13:07 | Outpatient (CLI) | payer OTHER ==
[2022-02-19 18:42] LABS: BILIRUBIN,URINE NEGATIVE (NEGATIVE); GLUCOSE, URINE (UA) NEGATIVE (NEGATIVE); KETONES,URINE (UA) NEGATIVE (NEGATIVE); LEUKOCYTE ESTERASE, URINE NEGATIVE (NEGATIVE); NITRITE,URINE NEGATIVE (NEGATIVE); OCCULT BLOOD,URINE LARGE (NEGATIVE); PROTEIN,URINE NEGATIVE (NEGATIVE); UROBILINOGEN,URINE 0.2 (NORMAL) E.U./dL (NORMAL)
[2022-02-19 18:45] LABS: CLARITY,URINE HAZY (CLEAR)
[2022-02-19 18:56] LABS: BACTERIA,URINE None Seen /HPF (None Seen); EPITHELIAL CELLS,UR FEW Transitional /HPF (<= Few); SQUAMOUS EPITHELIAL CELL,UR RARE Squamous (<= Few); WBC,URINE 0-3 /HPF (0-5)
== END 2022-02-19 13:08 | disposition home or self-care (01) ==
LOC: LAB.N 13:07
PROVIDERS: ATTEND Obstetrics & Gynecology
DX: R31.9 Hematuria, unspecified (principal)
CPT/HCPCS: 81001; 81003; 87086

== ENCOUNTER 2023-01-13 16:02 | Outpatient (CLI) | payer OTHER ==
--- NOTE | 2023-01-14 07:08 | MRI Report ---
PROCEDURE: LUMBAR SPINE WO INDICATIONS: PAIN IN RIGHT KNEE, LOW BACK PAIN, RIGHT HIP PAIN TECHNIQUE: Noncontrast sagittal T1 spin echo and T2 fast echo, sagittal STIR, axial T1 and T2 fast spin echo thr ough the lumbar spine. In cases with scoliosis, additional coronal T2 fast spin echo may be performe d. COMPARISON: Correlation is made with prior plain film, 02/06/2022. FINDINGS: Image quality: Excellent. Alignment and Curvature: There is normal bony alignment. Bone Marrow: Marrow is of normal overall signal. No acute vertebral body compression fractures. Spinal Cord: Conus medullaris terminates at the L1 level. Visualized cord demonstrates normal signa l and size. Paraspinous Soft Tissues: No paravertebral masses. T12-L1: Normal in appearance. L1-L2: Normal in appearance. L2-L3: Normal in appearance. L3-L4: No significant abnormality is seen. L4-L5: The disc height and disc signal are well preserved. Mild to moderate disc bulge is seen. The re is a central disc protrusion. Note is made of an annular fissure posteriorly. Mild facet hypertr ophy is seen. There is at least moderate bilateral neuroforaminal narrowing seen. Compression is seen upon the exiting nerve roots. Moderate central canal narrowing is seen. L5-S1: Moderate loss of disc height and signal are seen. Mild disc bulge is seen, with a central di sc protrusion. Note is made of an annular fissure posteriorly. Mild facet hypertrophy is seen. Mo derate bilateral neural foraminal narrowing is seen. Moderate central canal narrowing is seen. 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 Reviewed by: Jake Gerard MD on 01/13/2023 4:27 PM [facility] Approved by: Jake Gerard MD on 01/13/2023 4:27 PM [facility] Station ID: [id number]
--- NOTE | 2023-01-14 08:31 | MRI Report ---
PROCEDURE: KNEE WO - RT INDICATIONS: PAIN IN RIGHT KNEE, LOW BACK PAIN, RIGHT HIP PAIN TECHNIQUE: Noncontrast sagittal PD fast spin echo and T2 fast spin echo with fat saturation, sagittal 3-D gradie nt sequence with fat saturation; coronal T1 spin echo and PD fast spin echo with fat saturation, and axial PD fast spin echo with fat saturation through the knee. COMPARISON: None. FINDINGS: Image quality: Excellent. Menisci: There is mild T2 signal elevation at the posterior meniscocapsular junction of the posterio r horn medial meniscus. The medial and lateral menisci demonstrate otherwise normal morphology and in ternal signal. The meniscal root ligaments appear intact. Cruciate ligaments: The anterior and posterior cruciate ligaments appear intact. Medial structures: The medial collateral ligament appears intact. Visualized portions of the pes ans erinus tendons appear normal. No abnormal bursal fluid. Lateral structures: The lateral collateral ligament, long and short heads of the biceps femoris tend on appear intact. The popliteus tendon appears normal. Iliotibial band appears normal. Anterior structures: The quadriceps and patellar tendons appear intact. Patellar alignment is andrae l. Lateral ventral trochlear prominence. Mild edema within the superolateral aspect of the infrapatel lar fat pad. Bones and cartilage: No bone marrow contusions or fractures. Mild articular cartilage loss diffusely overlies the weightbearing aspects of the medial femoral condyle and medial tibial plateau. Articula r cartilage fibrillation overlies the medial and lateral patellar facets. Moderate articular cartilag e loss overlies lateral patellar facet inferiorly. Joint space: There is physiologic knee joint fluid. Trace Hancock's cyst. Normal appearing synovial p licae are incidentally noted. IMPRESSION: 1. Low-grade meniscocapsular junction injury involving the posterior horn medial meniscus. 2. Findings consistent with lateral patellofemoral friction syndrome in the appropriate clinical sett ing. Reviewed by: Juan Ayala MD on 01/14/2023 8:29 AM PDT Approved by: Juan Ayala MD on 01/14/2023 8:29 AM PDT Station ID: [id number]
--- NOTE | 2023-01-14 08:44 | MRI Report ---
PROCEDURE: HIP WO - RT INDICATIONS: PAIN IN RIGHT KNEE, LOW BACK PAIN, RIGHT HIP PAIN TECHNIQUE: Noncontrast coronal T1 spin echo and STIR through the bony pelvis. Coronal and axial T2 fast spin ec ho with fat saturation, sagittal T1 spin echo, and oblique axial T2 fast spin echo with fat saturatio n through the hip. COMPARISON: None. FINDINGS: Image quality: Excellent. Bones and joints: Bone marrow of the pelvic ring and proximal femurs show normal signal throughout. No intraosseous lesions or fractures. No avascular necrosis of the femoral heads. The visualized l ower lumbar spine appears normally aligned. Tendons: The gluteus medius and minimus tendons appear intact, without associated muscle atrophy. T he iliopsoas tendon appears intact, without adjacent bursal fluid collections. The origin of the ham string tendon is intact at the ischial tuberosity. Labrum and cartilage: Linear high T2 signal intensity traverses the superolateral labrum. Cartilage s urface of the femoral head appears of normal thickness. The alpha angle of the femur is within andrae l limits at less than 55 degrees. Soft tissues: There is low-grade T2 signal elevation within the quadratus femoris musculature internal controls consultant iorly. Visualized muscles demonstrate otherwise normal bulk and internal signal. The proximal sciati c neurovascular bundle appears normal adjacent to the hamstring tendons. No free pelvic fluid. Blad aj wall thickness is normal. Genitourinary structures and bowel loops appear normal where visualize d. IMPRESSION: 1. Right hip labral tear. 2. Low-grade right quadratus femoris muscle strain without evidence of associated impingement. Reviewed by: Juan Ayala MD on 01/14/2023 8:43 AM PDT Approved by: Juan Ayala MD on 01/14/2023 8:43 AM PDT Station ID: [id number]
== END 2023-01-13 16:03 | disposition home or self-care (01) ==
LOC: DI 16:02
PROVIDERS: ATTEND Nurse Practitioner Family
DX: S83.8X1A Sprain of other specified parts of right knee, initial encounter (principal); S73.101A Unspecified sprain of right hip, initial encounter; S76.011A Strain of muscle, fascia and tendon of right hip, initial encounter; M51.16 Intervertebral disc disorders with radiculopathy, lumbar region; M47.26 Other spondylosis with radiculopathy, lumbar region; M48.061 Spinal stenosis, lumbar region without neurogenic claudication; M51.17 Intervertebral disc disorders with radiculopathy, lumbosacral region; M47.27 Other spondylosis with radiculopathy, lumbosacral region; M48.07 Spinal stenosis, lumbosacral region

== ENCOUNTER 2023-07-16 14:48 | Emergency (ER) | payer OTHER ==
[2023-07-16 15:54] VITALS: BP 130/79; O2SAT 100
[2023-07-16] MEDS ORDERED: diphenhydrAMINE INJ 50 MG/ML VIAL IVP STA (15:59)
[2023-07-16] MEDS ORDERED: KETOROLAC 30 MG/ML VIAL IVP STA (15:59)
[2023-07-16] MEDS ORDERED: PROCHLORPERAZINE 10 MG/2 ML VIAL IVP STA (15:59)
--- NOTE | 2023-07-16 16:03 | ED Physician Documentation ---
History of Present Illness - Stated complaint Stated Complaint: LT FACE SWELLING - Chief complaint Chief Complaint: General - Additonal information Additional information: 28-year-old female presents to the emergency department for evaluation of several days left-sided facial pain, left-sided facial swelling and left eye pain. She states that she has had similar in the past with headaches on the right side but never on the left. She did take some diclofenac, Tylenol and iced her face which she reports improved the swelling. No fevers no nausea or vomiting. Denies possibility of . She states that when she gets headaches they typically will mary jo with her medications at home and resolved when she wakes up in the next morning. She has never had headaches going on for several days. No falls or trauma. Review of Systems Constitutional: reports: Other (Left facial swelling). denies: Fever Eyes: reports: Photophobia. denies: Loss of vision Ears: denies: Loss of hearing Nose: reports: Reviewed and negative Throat: reports: Reviewed and negative Cardiac: reports: Reviewed and negative Respiratory: reports: Reviewed and negative GI: reports: Reviewed and negative : reports: Reviewed and negative Skin: reports: Reviewed and negative Musculoskeletal: reports: Reviewed and negative Neurologic: reports: Headache PD PAST MEDICAL HISTORY - Past Medical History Cardiovascular: None Respiratory: None Neuro: Other (has right leg nerve pain, swelling at times. 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 Medications Home Medications: Ambulatory Orders Medication Instructions Recorded Confirmed Labetalol [Trandate] 100 mg PO BID 09/15/21 09/15/21 Acetaminophen [Acetaminophen Extra 1,000 mg PO Q8H PRN #60 tablet 10/11/21 Strength] Docusate Sodium 100Mg Capsule 100 - 200 mg PO BID PRN #60 cap 10/11/21 [Colace 100Mg Capsule] Ibuprofen [Motrin] 600 mg PO Q6H PRN #30 tab 10/11/21 oxyCODONE [Roxicodone] 2.5 - 5 mg PO Q4H PRN #24 tablet 10/11/21 - Allergies Allergies/Adverse Reactions: Allergies Allergy/AdvReac Type Severity Reaction Status Date / Time barley Allergy Hives Verified 07/16/23 14:55 broccoli Allergy Hives Verified 10/07/23 14:55 egg Allergy Hives Verified 07/16/23 14:55 oxycodone Allergy Dizziness Verified 07/16/23 14:55 pineapple Allergy Hives Verified 07/16/23 14:55 strawberry Allergy Hives Verified 07/16/23 14:55 tomato Allergy Hives Verified 07/16/23 14:55 - Social History Does the pt smoke?: No Smoking Status: Never smoker Does the pt drink ETOH?: No Does the pt have substance abuse?: No - Immunizations Immunizations are current?: Yes - POLST Patient has POLST: No PD ED PE NORMAL - General General: Alert and oriented X 3, No acute distress, Well developed/nourished - HEENT HEENT: Atraumatic, PERRL, EOMI, Ears normal, Moist mucous membranes, Pharynx benign, Other (No facial swelling or erythema noted.) - Neck Neck: Supple, no meningeal sign - Cardiac Cardiac: RRR - Respiratory Respiratory: Clear bilaterally Results - Vitals Vitals: Vital Signs - 24 hr 07/16/23 07/16/23 14:55 15:51 Temperature 36.8 C 36.4 C L Heart Rate 93 97 Respiratory 16 16 Rate Blood Pressure 134/63 H 130/79 O2 Saturation 97 100 Oxygen O2 Source Room air PD Medical Decision Making - ED course Complexity details: reviewed results, re-evaluated patient, d/w patient ED course: 28-year-old female presented to the emergency department for evaluation of sever al days of left-sided headache eye pain and a subjective sensation of left eye swelling. She reports that in the past with headaches she has had similar on the right side but never with the left. She did take her typical headache medications at home without resolution of the headache over the last several days. On presentation she was alert and well-appearing. There were no fevers. No pain was elicited with eye movement. No pain with palpation of the eye globe. Neurological and cerebellar exam was unremarkable. Clinically this presents most consistent with a migraine variant given the left-sided presentation as well as the photosensitivity. I administered the patient 30 mg of IV Toradol, 25 mg of Benadryl and 5 mg and Compazine on reevaluation she reports that the headache and eye pain have fully abated. Clinically this is not consistent with a subarachnoid hemorrhage or an infectious etiology. She feels comfortable and ready to be discharged home. A dose of Decadron was given before she departed to prevent return of the headache. The usual emergent return precautions were discussed for worsening symptoms. Departure - Departure Disposition: 01 Home, Self Care Clinical Impression: Headache Qualifiers: Headache type: unspecified Headache chronicity pattern: acute headache Intractability: not intractable Qualified Code(s): R51.9 - Headache, unspecified Condition: Stable Record reviewed to determine appropriate education?: Yes Instructions: ED Headache Migraine Comments: You were seen today in the emergency department because for several days you have been having a left-sided headache and eye pain. You also feel that your left side of the face has been swollen though this was not evident on exam today in the ER. Your history suggested a migraine variant of a headache. We did give you a cocktail of medications in the emergency department that included Toradol, Compazine and Benadryl and on reevaluation your headache is gone away. We did give you a single dose of Decadron before you left the emergency department. This should help prevent the headache from returning. At home I recommend that you drink plenty of water and get lots of rest. Discussed this ED visit with your primary care doctor. I would like you to return to the ER if you have any new or worsening headaches, develop any fevers, have any rash, slurred speech or facial droop. Forms: PCP List
[2023-07-16] MEDS ORDERED: DEXAMETHASONE 10 MG/ML VIAL PO STA (17:24)
[2023-07-16] MEDS ORDERED: CHERRY SYRUP 10 ML UDC PO ONE (17:24)
== END 2023-07-16 17:34 | disposition home or self-care (01) ==
LOC: ED 14:48
DX: R51.9 Headache, unspecified (principal)
CPT/HCPCS: 96374; 99283; A9270; J1200

== ENCOUNTER 2023-10-07 10:45 | Emergency (ER) | payer OTHER ==
[2023-10-07 11:11] VITALS: BP 136/67; O2SAT 97
== END 2023-10-07 13:29 | disposition left against medical advice (07) ==
LOC: ED 10:45
DX: Z53.21 Procedure and treatment not carried out due to patient leaving prior to being seen by health care provider (principal)